=== PATIENT | male | born 1970 | race Caucasian/White ===

== ENCOUNTER 2022-10-29 00:50 | Emergency (ER) | payer BC, SELFPAY ==
[2022-10-29 01:10] VITALS: BP 148/104; PULSE 82; RESP 18; TEMP 36.7; O2SAT 98; BMI 42.6
--- NOTE | 2022-10-29 01:52 | CRLHL7_ITS ---
For Patients: As a result of the Century Cures Act, medical imaging exams and procedure reports are released immediately into your electronic medical record. You may view this report before your referring provider. If you have questions, please contact your health care provider. Indication: Ulcer, evaluate for osteomyelitis Technique: Three views right 2nd toe Comparison: Nine Findings/impression: Small amount of soft tissue air at the tip the right 2nd toe. Questionable bony erosion of the distal phalanx, concerning for osteomyelitis, best seen on the oblique view. Dictated by Elva Araiza MD @ 10/29/2022 3:24:04 AM (Electronically Signed)
[2022-10-29 02:11] LABS: Basophils Absolute Auto 0.06 K/uL (0.00-0.30); Basophils Percent Auto 0.6 % (0.0-3.0); Eosinophils Absolute Auto 0.32 K/uL (0.00-0.50); Eosinophils Percent Auto 3.3 % (0.0-7.0); Hematocrit 50.5 % (37.0-53.0); Hemoglobin* 18.1 gm/dL (13.5-17.5); Immature Granulocytes Abs Auto 0.03 K/uL (0.00-0.30); Immature Granulocytes Pct Auto 0.3 %; Lymphocytes Absolute Auto 3.56 K/uL (0.90-2.90); Lymphocytes Percent Auto 36.9 % (20-44); Mean Corpuscular HGB Conc 36 gm/dL (32-36); Mean Corpuscular Hemoglobin 31 pg (26-34); Mean Corpuscular Volume 88 fL (80-100); Neutrophils Percent Auto 51.9 % (42.0-72.0); Platelet Count* 180 K/uL (140-440); RDW Coefficient of Variation % 12.1 % (11.5-15.5); Red Blood Count 5.77 m/uL (4.30-5.90); White Blood Count* 9.65 K/uL (4.50-11.00)
[2022-10-29 02:26] LABS: Chloride* 101 mmol/L (96-114); Sodium* 134 mmol/L (135-149)
[2022-10-29 02:27] LABS: Potassium* 4.2 mmol/L (3.6-5.1)
[2022-10-29 02:29] LABS: Creatinine* 0.8 mg/dL (0.5-1.5); Est. Creatinine Clearance* 132.61; Estimated Glomerular Filt Rate 106 ml/min
[2022-10-29 02:30] LABS: Blood Urea Nitrogen* 17 mg/dL (7-30); Carbon Dioxide* 23 mmol/L (20-32); Glucose* 230 mg/dL (60-115)
[2022-10-29 02:32] LABS: Slide Review Reflex No
[2022-10-29 02:33] LABS: C Reactive Protein* 0.8 mg/dL (0.5-1.0)
[2022-10-29 02:48] LABS: Erythrocyte SedimentationRate* < 2 mm/hr (2-15)
--- NOTE | 2022-10-29 03:21 | ED.SKABFB ---
HPI - Skin/Abscess/Foreign Bdy General Chief complaint: Skin/Abscess/Foreign Body Stated complaint: infection on right foot Time Seen by Provider: 10/29/22 01:46 History of Present Illness HPI narrative: 52-year-old man presenting to the emergency department with concern of infection in a toe on his right foot. History of neuropathy now with redness and swelling just noticed in the right 2nd toe. 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 Prior care for this was received in [place]. He has had some light drainage now possibly as long as 2 weeks from this toe. Struggling with 's health after a fall with a TBI and craniotomy and has not been attending to himself he says in the way he would have normally. Diarrhea today without abdominal pain. He has not had a fever. Related Data Allergies Allergy/AdvReac Type Severity Reaction Status Date / Time doxycycline AdvReac Verified 10/29/22 01:13 Review of Systems Status of ROS: Reports: 6 or more systems reviewed and unremarkable except as noted in History and below [facility] Medical History Diabetes ?E11.9 - Type 2 diabetes mellitus without complications (ICD-10) Neuropathy ?G62.9 - Polyneuropathy, unspecified (ICD-10) Social History Smoking Status: Never smoker Do you use any of these nicotine containing products: None How often do you have a drink containing alcohol: never AUDIT-C Alcohol total score: 0 Non-prescribed substance use: denies use Exam Narrative: Exam Narrative: A pleasant. Carefully groomed. Dapper. Mildly congested in his breathing. Heart with regular rate and rhythm. Skin is warm and dry. Does have mildly pitting pretibial edema. Examination of the right foot shows rather thickened toenails. The right 2nd toe in question has thick distal total tip of toe callus with some sub callus evidence of a little bleeding. There is mild fluctuance. There is odor. Darkly red mildly purpled in color skin throughout the 2nd toe to the MTP joint. No calor. No pain to palpation/manipulation. Const: Vital Signs, click to edit/add: Vital Signs - 24 hr 10/29/22 01:10 10/29/22 07:35 Temperature 98.1 F 98.4 F Pulse Rate [Left P ulse Oximeter] 82 78 Respiratory Rate 18 16 Blood Pressure [Ri ght Upper Arm] 148/104 H 151/94 H Pulse Oximetry 98 98 Documenting provider has reviewed patient's vital signs: yes Course Vital Signs Vital signs: Initial Vital Signs Temperature 98.1 F 10/29/22 01:10 Temperature Source Temporal Artery Scan 10/29/22 01:10 Pulse Rate 82 10/29/22 01:10 Respiratory Rate 18 10/29/22 01:10 Blood Pressure 148/104 H 10/29/22 01:10 Blood Pressure Mean 118 H 10/29/22 01:10 Blood Pressure Position Sitting 10/29/22 01:10 Pulse Oximetry 98 10/29/22 01:10 Vital Signs Temperature 98.1 F 10/29/22 01:10 Pulse Rate 82 10/29/22 01:10 Respiratory Rate 18 10/29/22 01:10 Blood Pressure 148/104 H 10/29/22 01:10 Pulse Oximetry 98 10/29/22 01:10 Temperature 98.4 F 10/29/22 07:35 Pulse Rate 78 10/29/22 07:35 Respiratory Rate 16 10/29/22 07:35 Blood Pressure 151/94 H 10/29/22 07:35 Pulse Oximetry 98 10/29/22 07:35 MDM - Skin/Abscess/Foreign Bdy MDM Narrative Medical decision making narrative: He is concerned about evolving infection and would like some lab work done. I think that is appropriate. I see less evidence of cellulitis and would have more concerned of potential osteomyelitis. This time of night can do x-rays. IV will be placed as if might need to maintain for some time. This is done and on my review of x-ray images of his toe do not initially appreciate evidence of osteomyelitis. Unfortunately in moderately busy emergency department it was quite some time before Mr. Potter was able to receive his x-ray. Radiology over-read suggests appearance of erosion to the tip of the toe on oblique view only --reviewing myself I can appreciate the concern. Return to unroof this callus. Cleanse the toe with Betadine. Removed this callus and some callus material just superior to that. Under the main calluses distal toe there is a 1 cm ulceration with some purulent material. Collected for wound culture. Above that removed another callus under which seemed to be some fluctuance though which exposed a small amount of some healthy tissue into the pad of the toe I think. Bacitracin Vaseline gauze and Elizabeth placed. Labs overall reassuring with normal sed rate and CRP. CBC with normal white count. I think it would be prudent to treat as if osteomyelitis is present. I will be consulting with Podiatry. Initiated course of Ertapenem and vancomycin given comorbidities. I would note though chronic nature of this presentation including potential osteomyelitis. Might be possible to treat with oral medication. There is only minimal evidence of cellulitis. Thankfully managed to reach Dr. Benites. Will be reaching out in the next day or 2. Meanwhile will transition to oral antibiotics. Discussed options and settled on Augmentin. Do not have prior culture results. Sub-callus wound culture pending here. see patient discharge plan Medical Records Attestation: I reviewed the patient's medical records. (None available) Lab Data Attestation: I reviewed the patient's lab results. Labs: Lab Results 10/29/22 Range/Units 02:05 WBC 9.65 (4.50-11.00) K/uL RBC 5.77 (4.30-5.90) m/uL Hgb 18.1 H (13.5-17.5) gm/dL Hct 50.5 (37.0-53.0) % MCV 88 (80-100) fL MCH 31 (26-34) pg MCHC 36 (32-36) gm/dL RDW Coeff of Vonnie 12.1 (11.5-15.5) % Plt Count 180 (140-440) K/uL Neut % (Auto) 51.9 (42.0-72.0) % Lymph % (Auto) 36.9 (20-44) % [place] % (Auto) 7.0 (0.0-11.0) % Eos % (Auto) 3.3 (0.0-7.0) % Baso % (Auto) 0.6 (0.0-3.0) % Neut # (Auto) 5.00 (1.7-7.0) K/uL Lymph # (Auto) 3.56 H (0.90-2.90) K/uL [place] # (Auto) 0.70 (0.00-0.90) K/UL Eos # (Auto) 0.32 (0.00-0.50) K/uL Baso # (Auto) 0.06 (0.00-0.30) K/uL ESR < 2 L (2-15) mm/hr Sodium 134 L (135-149) mmol/L Potassium 4.2 (3.6-5.1) mmol/L Chloride 101 (96-114) mmol/L Carbon Dioxide 23 (20-32) mmol/L BUN 17 (7-30) mg/dL Creatinine 0.8 (0.5-1.5) mg/dL Estimated Creat Clear 132.61 Estimated GFR 106 ml/min Glucose 230 H (60-115) mg/dL Calcium 9.0 (8.4-10.6) mg/dL C-Reactive Protein 0.8 (0.5-1.0) mg/dL Discharge Plan Discharge Clinical Impression: Cellulitis, Osteomyelitis Patient Disposition: Home, Self-Care Condition: Stable Additional Instructions: Stay well-hydrated. Change dressing daily. Elevate leg at rest. Anticipate a call from Dr. Benites's clinic today or tomorrow morning. Return for fever, vomiting, copious purulent drainage, spreading redness after 2 days. Augmentin from [facility]. Follow Up/Referrals: Brijesh Rossi MD [Primary Care Provider] - Stand Alone Forms: MyHealth Info Instructions
[2022-10-29] MEDS: ERTAPENEM 1 GM in 0.9 % SODIUM CHLORIDE Mini-bag 100 ML IVPB (04:37)
[2022-10-29 07:35] VITALS: BP 151/94; PULSE 78; RESP 16; TEMP 36.9; O2SAT 98
== END 2022-10-29 08:03 | disposition home or self-care (01) ==
PROVIDERS: Emergency Provider Family Medicine; PCP Family Medicine
DX: L03.115 Cellulitis of right lower limb (principal); M86.8X7 Other osteomyelitis, ankle and foot
CPT/HCPCS: 36415; 73660; 80048; 85025; 85651; 86140; 87070; 87186; 96365; 96366; 99284; J1335; J3370; J7120

== ENCOUNTER 2023-10-27 06:01 | Day surgery (SDC) | payer BC, SELFPAY ==
[2023-10-27 06:18] VITALS: BMI 42.4
[2023-10-27 06:42] VITALS: BP 135/69; PULSE 61; RESP 16; TEMP 36.8; O2SAT 98
[2023-10-27] MEDS: LACTATED RINGERS 1000 ML 1,000 ML 100 ML IV (06:43)
[2023-10-27] MEDS: SODIUM CHLORIDE 0.9 % (FLUSH) 10 ML SYRINGE IVF (06:43)
--- NOTE | 2023-10-27 07:15 | XR_ITS ---
Patient: LOUIS STOUT Facility:?[facility] Patient ID:?[id number] Site Patient ID:?[id number] Site :?1970 Study:?XRay-Extremity Right FOOT 2 VIEW-10/27/2023 8:44:55 AM Ordering Physician:CHELSY Final Report: Indication: RIGHT cheilectomy, 1ST MPJ FUSION Technique: Three fluoroscopic images of the right foot. Fluoroscopic time 6.8 seconds. IMPRESSION: Fluoroscopic guidance for right cheilectomy and 1st MTP fusion. Dictated by Eliazar Serra MD @ 10/27/2023 8:59:47 AM Signed by:?Eliazar Serra MD @10/27/2023 8:59:47 AM (Electronic Signature)
[2023-10-27] MEDS: CEFAZOLIN 2 GM INJ IVP (07:24)
[2023-10-27] MEDS: BUPIVACAINE 0.5% 30 ML INJECTION (07:34)
[2023-10-27 08:50] VITALS: BP 118/75; PULSE 52; RESP 16; TEMP 36.6; O2SAT 96
--- NOTE | 2023-10-27 08:58 | W.ANESCHARGE ---
Anesthesia Charges Start Date/Time Anesthesia Start Date: 10/27/23 Anesthesia Start Time: 07:16 Stop Date/Time Anesthesia Stop Date: 10/27/23 Anesthesia Stop Time: 08:53
[2023-10-27 09:00] VITALS: BP 123/64; PULSE 51; RESP 16; O2SAT 92
--- NOTE | 2023-10-27 09:00 | W.PM.PODPROC ---
Date of Procedure: 10/27/23 Surgeon: Eduard Benites DPM Pre-op Diagnosis: 1. Hallux rigidus right 2. 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 hallux rigidus right 2. 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 cheilectomy 1st MPJ right 2. flexor tenotomy right great toe Indications: patient seen in clinic for ongoing diabetic ulceration great toe in addition to bony spurring at the 1st MPJ. He has elected to proceed with surgical with treatment. I reviewed the procedure, recovery, expectation potential complications. These include but are not limited to: Poor wound healing, infection, recurrence, stiffness, continued pain, potential need for future surgery, deep venous thrombosis, pulmonary embolism possible . All questions answered written consent was obtained. Site marked. Procedure Description: Patient brought the operating room placed supine position on operating table. IV sedation was initiated local anesthetic injected into the right foot. He was prepped and draped in sterile fashion. Standard time-out protocol followed. The right foot was exsanguinated the tourniquet inflated to 250 mm Hg. Linear incision was made over the 1st metatarsophalangeal joint. Incision was carried down through skin subcutaneous tissues. A linear capsular incision was made. Multiple osteophytes were removed. The bony spurring was then removed from the dorsal mediolateral 1st metatarsal as well as base of the proximal phalanx utilizing a rongeur. Joint was remodeled with a rotary bur. Wound was thoroughly irrigated normal sterile saline. C-arm confirmed excellent bony resection. Range of motion improved. joint capsule remodeled and repaired with 3-0 Vicryl. Skin closed with 4-0 Monocryl and 4-0 Prolene. Small stab incision made with a 6100 blade plantar IPJ right great toe. Flexor hallucis longus tendon transected at the level of the IPJ. Incision closed with a single 4-0 Prolene Suture. Sterile dressings applied. Tourniquet was released and normal capillary fill time returned all digits. He was transferred from OR to PACU vital signs stable and vascular status intact to the right lower extremity. He will be discharged per same-day surgery protocol. He is given verbal and written postoperative instructions. He will follow up in 2 days. He is given oxycodone for pain. Anesthesia: MAC and local Hemostasis: ankle Estimated blood loss (mL): 5 Specimens: none sent Disposition: same day
[2023-10-27 09:15] VITALS: BP 121/64; PULSE 56; RESP 16; O2SAT 93
[2023-10-27 09:30] VITALS: BP 121/72; PULSE 56; RESP 16; O2SAT 95
== END 2023-10-27 10:05 | disposition home or self-care (01) ==
PROVIDERS: PCP Family Medicine; Visit Provider Podiatrist
PROC: (CPT 28289; principal; 2023-10-27 07:15)
PROC: (CPT 28740; 2023-10-27 07:15)
DX: M20.21 Hallux rigidus, right foot (principal); E11.621 Type 2 diabetes mellitus with foot ulcer; L97.512 Non-pressure chronic ulcer of other part of right foot with fat layer exposed; M20.5X1 Other deformities of toe(s) (acquired), right foot
CPT/HCPCS: 28010 ×2; 28289; 01480; 73620; 76000; 82962; A4580; J0665; J0690; J2250; J2704; J3010; J7120

== ENCOUNTER 2023-12-01 11:55 | Outpatient (CLI) | payer BC, SELFPAY | END 2023-12-01 11:56 | disposition home or self-care (01) | LOC: NFLDREF 12-19 08:11 | PROVIDERS: PCP Family Medicine; Referring Provider Family Medicine | DX: R19.7 Diarrhea, unspecified (principal); Z86.19 Personal history of other infectious and parasitic diseases | CPT/HCPCS: 87045; 87046; 87427; 87493 ==

== ENCOUNTER 2024-08-14 15:17 | Emergency (ER) | payer BC, SELFPAY ==
[2024-08-14] VITALS (7 sets, daily range): BP systolic 165–167; BP diastolic 97–98; PULSE 120–125; RESP 20–22; TEMP 37.6; O2SAT 89–92; BMI 40.0
--- OUTSIDE RECORDS SUMMARY | 2024-08-14 15:20 | XMS_ITS | Continuity of Care Document ---
Author Organization [facility] Address [address] [address] [place] [address] Phone Care Team Providers Care Splunk Consultant Name Role Phone Devon Lerner MD Unavailable Unavailable Allergies, Adverse Reactions, Alerts Substance Reaction Status Criticality lisinopril cough Active No Information doxycycline hallucinations Active No Informatio n Medications Medication Instructions Dosage Effective Dates (start - stop) Status Comments hydrochlorothiazide 25 mg tablet take 1 tablet by oral route every day 25 MG - Active pravastatin 40 mg tablet take 1 tablet b y oral route every day 40 MG - Active amlodipine 5 mg tablet take 1 tablet by oral route every day 5 MG - Active Vitamin D3 2,000 unit tablet take 1 Tablet by Oral route every day 1 Tablet - Active Procedures Procedure Date Colonoscopy Flex; W/bx 1/mx Level Iv-surg Path Gross/micro 16 cancelled appt cancelled appt Ugi Endo; W/bx 1/mx Routine Serum Collection Offic/outpt E&m New Mod-hi Advance Directives Directive Yes / No Effective Date File Name No Information Encounters Encounter Description Practice Location Reason(s) For Visit Diagnoses Date Provider Providers Copied on Encounter [facility], [address] [address], [place], [id number], [place] tel:[phone] [facility] DiarrheaDiarrhea, unspecified 3-201 6 Eduarda Osorio. [address] [facility], [place], [id number] , [place]. [phone] Referring Provider: Brijesh Rossi MD, [address] [place], [address]. tel:[phone] [facility], [address] [address], [place], [place], [id number], [place] tel:[phone] [facility] Procedure and treatment not carried out for other reasons 6 Benedicto Escoto. [address] [facility], [facility] [address], [facility] [place], [id number] , [place]. tel:[phone] Referring Provider: Brijesh Rossi MD, [address] [place], [address]. tel:[phone] [facility], [address] [address], [place], [place], [id number], [place] tel:[phone] [facility] No Information 4 Jeff Conteh. [address] [place] [address], [facility] [address], [facility] [place], [id number] , [place]. [phone] Referring Provider: Brijesh Rossi MD, [address] [place], [address]. tel:[phone] [facility], [address] [address], [place], [place], [id number], [place] tel:[phone] [facility] External Referral 4 Jeff Conteh. [address] [place] [address], [facility] [address], [facility], [id number] , [place]. tel:[phone] Offic/outpt E&m New Mod-hi [facility], [address] [address], [place], [place], [id number], [place] tel:[phone] [facility] GI Symptoms or Concerns (chief complaint) Nausea And VomitingDietary Surveil/counselHype rtension, UnspecifiedEssentia l (primary) hypertensionNausea with vomiting, unspecifiedDietary counseling and surveillance 4 Benedicto Escoto. [address] [place] [address], [facility] [address], [facility] [place], [id number] , [place]. tel:[phone] Referring Provider: Brijesh Rossi MD, [address] [place] [address], [address]. tel:[phone] Family History Family Member Type Diagnosis Age At Onset Sister Problem (finding) malignant neop lasm of breast in first degree relative Father Problem (finding) Alive and well Mother Problem (finding) Thyroid disorder Sister Problem (finding) Leukemia Payers Payer name Insurance type Covered alliance party ID Authoriza timaninder(s) [facility] [employer] [id number] Social History Type Description Quantity Date Captured Comments Alcohol Use Details Unknown Caffeine Use Details Unknown Tobacco Use Status No Information Smoking Status Former smoker Sex Male Vital Signs Date / Time: Height Weight BMI Pulse Rate Blood Pressure Temperature Respiratory Rate Body Surface Area Head Circumference Head Circ. Percentile Wt./Justin. Percentile BMI percentile Pulse Ox Inhaled Ox 76.00 in 154.200 kg (340.00 lbs) 41.4 0 kg/m eter (2) 73 /min 151/90 mm[Hg] 0.00 F 16 /min 97 % Chief Complaint And Reason For Visit No Information Reason For Referral Reason For Referral No Information Plan Of Treatment Date Type Action Status Goal Lifestyle education regardin g diet completed History Of Present Illness Encounter Date Complaint History Of Prese nt Illness GI Symptoms or Concerns The cassandra ent is a 44-year-old male with past medical history significant for hypertension seen for evaluation of episodic weakness associated with nausea and vomiting.The patient reports symptom onset in October initially episodes of weakness followed by nausea and vomiting were occurring every four to six weeks typically after dinner. More recently, symptoms have been occurring three times a week without any association with p.o. intake or medications. Typical episode occurs between the hours of 04:00 and 08:00 PM. He describes profound weakness, feeling drained without any associated lightheadedness or dizziness followed by nausea and nonbloody emesis. The episode is primarily characterized by the feeling of weakness and can last from 30 minutes to three hours. He denies any associated abdominal pain. He denies diarrhea or constipation, no blood in his stool. He denies any history of weight loss. There is no early satiety. On questioning, he does say he has checked his blo Functional Status Date Functional Assessmen t No Information Instructions Date Instruction Additional Infor abimbola 1. EGD2. Tsh, sprue serologies3. consider 2nd opinion regarding cholecystectomy given low gb ef (patient would like to discuss further with pcp)4. ropinirole may be the cause of these symptoms -patient will discuss with prescribing physician5. f/u with cardiology as scheduled.6. pending course and findings consider cosyntropin stim test and neuro eval Related to Nausea And Vomiting Lifestyle education regarding di et Related to Dietary surveillance and counseling Assessments Type Assessment Date assessment Diarrhea Patient Care Teams Name Effective Dates (start - stop) Status Members No Information
--- OUTSIDE RECORDS SUMMARY | 2024-08-14 15:20 | XMS_ITS | Clinical Summary ---
Author Organization [facility] Address [place], [place] [address] Care Team Providers Care Wall Cleaner Name Role Phone Kevonshon Areli Samantha RN Unavailable [phone] Brijesh Rossi MD Primary Care Provider Allergies Active Allergy Reactions Criticality Noted Date Comments Lisinopril Cough 04/13/2014 Zonisamide Anxiety,Agitation,Mental Status Change 04/13/2020 Medications cholecalciferol (VITAMIN D-3) 2,000 unit capsule Take 1 capsule by mouth once daily. 1 capsule 0 05/25/20 14 Active aspirin (ECOTRIN) 81 mg enteric coated tablet Take 1 tablet by mouth once daily with a meal. 0 03/26/20 17 Active topiramate (TOPAMAX) 100 mg tablet 03/16/20 21 Active blood sugar diagnostic (OneTouch Verio test strips) stripIndications:T ype 2 diabetes mellitus with foot ulcer, without long-term current use of insulin (HC) Dispense test strips covered by the patient insurance. Test 2 times per day. 100 Each 12 06/20/20 21 Active pramipexole (MIRAPEX) 0.125 mg tabletIndications: Idiopathic peripheral neuropathy TAKE THREE TABLETS BY MOUTH AT BEDTIME. MAY INCREASE BY ONE TAB WEEKLY, UP TO FOUR TABS. Need to make an apt for further refills. 120 Tablet 07/24/19 22 Active pravastatin (PRAVACHOL) 40 mg tabletIndications: Mixed hyperlipidemia Take 1 Tablet (40 mg) by mouth at bedtime. 90 tablet. 3 09/20/19 22 Active losartan (COZAAR) 50 mg tabletIndications: HTN (hypertension) Take 1 Tablet (50 mg) by mouth once daily. 90 Tablet 3 09/20/19 22 Active amLODIPine (NORVASC) 10 mg tabletIndications: HTN (hypertension) Take 1 Tablet (10 mg) by mouth once daily. 90 tablet. 3 09/20/19 22 Active durable medical equipment (DME)Indications:D iabetic ulcer of toe of right foot associated with type 2 diabetes mellitus, with fat layer exposed (HC),Other acute osteomyelitis, unspecified site (HC) SQUARED TOE POST OP SHOE, XL 1 Each 11/21/19 23 Active ondansetron (ZOFRAN ODT) [address] 4 mg on the tongue every 8 hours if needed for Nausea/Vomiting. Active FreeStyle Ernst 3 Sensor for continuous blood glucose monitor (CGM)Indications:T ype 2 diabetes mellitus with foot ulcer, without long-term current use of insulin (HC) To be used to read blood sugars, follow hemmer lockstitch directions. Change each sensor every 14 days 2 Each 12 04/17/20 23 Active LORazepam (ATIVAN) 1 mg tabletIndications: Generalized anxiety disorder with panic attacks Take 0.5-1 Tablets (0.5-1 mg) by mouth once daily if needed for Anxiety (or panic symptoms). 10 Tablet 04/18/20 23 Active aspirin 325 mg tablet Take 325 mg by mouth. 02/04/20 23 Active oxyCODONE (ROXICODONE) 5 mg immediate release tabletIndications: Hallux rigidus, right foot Take 1-2 Tablets (5-10 mg) by mouth every 4 hours if needed for Pain. 15 Tablet 10/27/19 24 Active tirzepatide (Mounjaro) 12.5 mg/0.5 mL penIndications:Typ e 2 diabetes mellitus with foot ulcer, without long-term current use of insulin (HC) Inject 0.5 mL (12.5 mg) subcutaneous once weekly. 6 mL 01/01/20 24 Active gabapentin (NEURONTIN) 300 mg capsuleIndications :Idiopathic peripheral neuropathy,Foot pain, right TAKE 2 CAPS BY MOUTH IN MORNING, 1 CAP IN AFTERNOON AND 5 CAPS AT BEDTIME. 720 Capsule 04/26/20 24 Active FLUoxetine (PROZAC) 10 mg capsuleIndications :Major depressive disorder, recurrent, mild (HC),Generalized anxiety disorder with panic attacks Take 3 Capsules (30 mg) by mouth once daily. 90 Capsule 05/24/20 24 Active zolpidem (AMBIEN) 5 mg tabletIndications: Insomnia, idiopathic Take 1 Tablet (5 mg) by mouth at bedtime if needed for Sleep. 30 Tablet 1 06/15/20 24 Active LORazepam 1 mg tabletIndications: Adjustment reaction with anxiety and depression Take 1 tablet by mouth once or twice daily as needed for anxiety 20 Tablet 06/22/20 24 Active QUEtiapine (SeroqueL) 25 mg tabletIndications: Adjustment reaction with anxiety and depression Take 1-2 tablets by mouth once daily about 1 hour before bed for insomnia 30 Tablet 1 06/22/20 24 Active Active Problems Problem Noted Date Diagnosed Date Morbid obesity with BMI of 45.0-49.9, adult 11/11 Type 2 diabetes mellitus wit h foot ulcer, without long-term current use of insulin 07/30/2021 Cellulitis and abscess of left lower extremity 0 03/26/2021 RLS (restless legs syndrome) 05/14/2013 HTN (hypertension) Other and unspecified hyperlipidemia Peripheral neuropathy Encounters Date Type Department Care Team Description 06/22/2024 2:40 PM PATTERN MOLDER Office Visit [facility] [id number] [phone] Emilie Dodson PA Mental Health Issue (Patient would like mental health referral. Patient lost on and is having trouble sleeping and eating. Patient states he has depression during the day and anxiety throughout the night. was in Hospice for 7 months.) 06/22/2024 Travel 06/22/2024 Nurse Triage [address] [phone] Brijesh Rossi MD Depression 05/22/2024 [place] [facility] [place] [address] [place] [address] Alireza Padilla MD Refill Request (Fluoxetine) 05/19/[address] [phone] Alireza Padilla MD Refill Request (Fluoxetine ) from Last 3 Months Immunizations Name Administration Dates Next Due COVID-19 vaccine (Moderna 100mcg/0.5mL) PF, MDV 10/24/2020,09/27/2020 COVID-19 vaccine (Pfizer-BioNTech 30mcg/0.3mL) P F, MDV 06/19/2021 Hepatitis A (Adult) 04/18/2015,05/25/2014 Td (Age >=7 Years) 06/16/2023 Tdap 05/25/2014 Typhoid (injectable) 06/28/2015 Zoster (Shingrix-RZV, recombinant) 12/03/2021, Family History Medical History Relation Name Comments Heart failure Father Hypertension Father Neuropathy Father Idiopathic Cancer Sister leukemia Relation Name Status Comments Father Mother Alive Sister Alive Social History Tobacco Use Types Packs/Day Years Used Date Smoking Tobacco: Former Cigarettes 0.3 15 0 03/03/2002 - 03/03/2017 Smokeless Tobacco: Never Tobacco Cessation:Counseling Given: Yes Comments:Has not had a cigarette since 02/01/23 Alcohol Use Standard Drinks/Week Comments Not Currently 1 (1 standard drink = 0.6 oz pur e alcohol) Minimal PHQ-2 Answer Date Recorded PHQ-2 TOTAL SCORE 3 06/22/2024 Social Connections Answer Date Recorded Frequency of Communication with Friends and Fami ly 0 04/17/2023 Financial Resource Strain Answer Date R ecorded Difficulty of Paying Living Expenses 3 04/17/2023 Difficulty of Paying Living Expenses Not on file 04/17/2023 Food Insecurity Answer Date Recorded Worried About Running Out of Food in the Last Ye ar 1 04/17/2023 Transportation Needs Answer Date Record ed Lack of Transportation (Medical) 1 04/17/2023 Housing Stability Answer Date Recorded Unable to Pay for Housing in the Last Year 1 04/17/2023 Sex and Gender Information Value Date Recorded Sex Assigned at Not on file Legal Sex Male 7:19 AM PATTERN MOLDER Gender Identity Not on file Sexual Orientation Not on file Occupation Industry Job Start Date Job End Date [employer] Not on file Not on file Not on file Obstetrics History Last Filed Vital Signs Vital Sign Reading Time Taken Comments Blood Pressure 183/102 06/22/2024 2:47 PM PATTERN MOLDER Pulse 104 06/22/2024 2:47 PM PATTERN MOLDER Temperature 36.1 C (97 F) 06/22/2024 2:47 PM PATTERN MOLDER Respiratory Rate 22 06/22/2024 2:47 PM PATTERN MOLDER Oxygen Saturation 95% 06/22/2024 2:47 PM PATTERN MOLDER Inhaled Oxygen Concentration - - Weight 150 kg (330 lb 11.2 oz) 10/02/2023 9:11 A M CDT Height 189.2 cm (6' 2.5) 10/02/2023 9:11 AM CDT Body Mass Index 41.89 10/02/2023 9:11 AM CDT Plan of Treatment Upcoming Encounters Date Type Department Care Team (Late st Contact Info) Description 08/17/2024 2:30 PM PATTERN MOLDER Office Visit [facility] [address] [place], [place] [phone] Aime Perry MD [address] [place], [place] [phone] Health Maintenance Due Date Last Done Comments HIV for age 15-65 1985 Hepatitis C screening for ag e 18-79 01/23/1988 Hepatitis B series for Diabe jamie (1 of 3 - 19+ 3-dose series) 1989 Pneumococcal series for age 50+ (1 of 2 - PCV) 1989 Lipids for age 45-75 05/29/2023 05/29/2018, 05/29/2018, 05/14/2013, Additional history exists COVID-19 vaccine series (2023- season) 2024 06/19/2021, 10/24/2020, 09/27/2020 Influenza for age 50-64 03/14/2024 BMI (ht and wt on same day) for age 18+ 10/01/2024 10/02/2023, 04/17/2023, 01/30/2022, Additional history exists Depression screening for age 12+ 06/22/2025 06/22/2024, 05/13/2023, 04/01/2023, Additional history exists Colonoscopy through age 75 10/24/2025 10/25/2015 Tetanus booster 06/16/2033 06/16/2023, 05/25/2014 Tdap Completed 05/25/2014 Zoster (shingles) series for age 50+ Completed 12/03/2021, 09/19/2021 Procedures Procedure Name Priority Date/Time Associated Diagnosis Comments LIPID PANEL W REFLEX MEASURED LDL Routine 05/29/2018 2:15 PM PATTERN MOLDER Well adult exam SCAN-COLONOSCOPY 10/25/2015 8:00 AM CDT from Last 3 Months or Most Recently Relevant to Health Maintenance Results * (ABNORMAL) LIPID PANEL W REFLEX MEASURED LDL (05/29/2018 2:15 PM PATTERN MOLDER) CHOLESTEROL,TOTAL 182 100 - 199 mg/dL 05/29/2018 2:48 PM PATTERN MOLDER [facility] TRIGLYCERIDES 415(H) <150 mg/dL 05/29/2018 2:48 PM PATTERN MOLDER [facility] HDL CHOLESTEROL 30(L) >40 mg/dL 8 2:48 PM PATTERN MOLDER [facility] NON-HDL CHOLESTEROL 152(H) <145 mg/dl 05/29/2018 2:48 PM PATTERN MOLDER [facility] CHOL/HDL RATIO 6.07(H) <4.50 05/29/2018 2:48 PM PATTERN MOLDER [facility] LDL CHOLESTEROL 8 2:48 PM PATTERN MOLDER [facility] Comment:Invalid LDL when Tri g >400, reflexed to measured LDL PROVIDER ORDERED STATUS RANDOM 05/29/2018 2:48 PM PATTERN MOLDER [facility] Blood BLOOD SPECIMEN / Unknown Venipuncture / Unknown 05/29/2018 2:15 PM PATTERN MOLDER 05/29/2018 2:15 PM PATTERN MOLDER us Brijesh Rossi MD CHEMISTRY Final R esult [address] [address] * SCAN-COLONOSCOPY (10/25/2015 8:00 AM CDT) Narrative Transcriptions Devon Lerner MD - 10/25/2015 7:04 AM CDT [facility] [address], [address], [place] [address] Patient Name: Louis Potter Gender: Male Exam Date: 10/25/2015 Visit Number: [id number] Age: 45 Years Date of : 1970 Attending MD: Devon Lerner MD Medical Record#: [id number] ----- Procedure: Colonoscopy Indications: Diarrhea Referring MD: Brijesh Rossi MD Primary MD: Brijesh Rossi MD Medications: Intra Procedure Medications: Received MAC sedation per anesthesia provider Complications: Procedure: An examination of the heart and lungs was performed and found to be withinacceptable limits. The patient was therefore deemed a reasonablecandidate for endoscopy and 1 sedation. The risks and benefits of the procedure were explained to the patient.After obtaining informed consent, MAC sedation was administered peranesthesia provider and I passed the scope without difficulty via the rectum to the ileum. The appendiceal orificeand ic valve were identified. The scope was retroflexed during theexamination The quality of the prep was good (Miralax/Gatorade DoublePrep). This was a complete examination throughout the entire colon. Findings: Normal finding. Location - ileum. Random biopsies were taken throughout the colon to rule out microscopiccolitis. The entire colon was normal. Impression: Diarrhea impression comments: Colonoscopy was unremarkable. He does have afamily history of microscopic colitis and biopsies were obtained. Interestingly, he did require a 2-day colon prep, which brings up thepossibility of constipation with overflow diarrhea. Pathology Results: A: COLON, RANDOM, BIOPSY: 1. Colonic mucosa with no diagnostic abnormalities 2. No evidence of microscopic, active or chronic colitis MICROSCOPIC A: Performed Electronically signed by: Nasir Maxwell MD No microscopic colitis. If symptoms persist, we would be happy to see cherry in our clinic for consultation. Final Plan: Repeat colonoscopy in 10 years for screening. If you have signs orsymptoms of lower GI illness or a new diagnosis of colon cancer in animmediate family member, you should contact [place] or your primary providerto discuss whether your next exam should be repeated sooner. We will attempt to contact you at appropriate intervals via [place] mail. Wemay not be able to find you or contact you at that time, therefore youshould know that the responsibility for following our recommendation restswith you. If you don't hear from us at the time your procedure is due,please contact our office to schedule an appointment. If your contactinformation should change, please contact our office so that we can updateyour record. Plan Comments: Recommendation Comments: Follow up biopsies. Additional Comments: No microscopic colitis. If symptoms persist, we would be happy to see cherry in our clinic for consultation. _Electronically signed by: Devon Lerner MD 10/25/2015 Devon Lerner MD OTHER Final Resu lt from Last 3 Months or Most Recently Relevant to Health Maintenance Insurance [facility] [place] * Guarantor: LOUIS POT[employer] Account Type Relation to Patient Date of Phone Billing Address Workers Comp 1970 [address], [place] [address] [place] [employer] Advance Directives * Full Code (Latest Code Status on File) Date Activated Date Inactivated Comments 12/02/2022 10:29 AM 12/03/2022 2:28 AM Question Answer Comments Code Status Discussion: Reviewed Preferences * Full Code Date Activated Date Inactivated Comments 08/02/2021 11:19 AM 08/02/2021 5:10 PM Question Answer Comments Code Status Discussion: Reviewed Preferences * Full Code Date Activated Date Inactivated Comments 06/07/2014 2:16 PM 06/07/2014 7:42 PM * Full Code Date Activated Date Inactivated Comments 06/07/2014 8:26 AM 06/07/2014 2:16 PM Care Teams Wall Cleaner Relationship Specialty Start Date End Date Brijesh Rossi MD [address] [place] [address] [address] [place] [address] PCP - General Family Practice 04/26/24 Areli Ogden RN [address] [place] [address] Boiler Control Technician 04/17/23
--- OUTSIDE RECORDS SUMMARY | 2024-08-14 15:20 | XMS_ITS | Clinical Summary ---
Author Organization [facility] Address [address], [place] [address] Care Team Providers Care Fuel Dock Attendant Name Role Phone Brijesh Rossi MD Primary Care Provider [phone] Source Comments You are receiving this document as you are listed as the primary care provider,follow-up provider, or the patient has been referred to you for consultation.This is in compliance with the Medicare and[facility] Cent[facility]aid EHR Incentive Program,which states Providers who transition their patient to another setting of careor provider of care or refers their patient to another provider of care shouldprovide summary care record for each transition of care or referral. [place] Allergies Active Allergy Reactions Criticality Noted Date Comments Lisinopril Cough 02/02/2023 Zonisamide Other, see comments 02/02/2023 anxiety Medications Medication Sig Dispensed Refills Start Date End Date Status aspirin 325 MG tablet Take 1 Tablet (325 mg) by mouth daily. 30 Tablet 02/03/2023 Active Social History Tobacco Use Types Packs/Day Years Used Date Smoking Tobacco: Never Assessed Sex and Gender Information Value Date Recorded Sex Assigned at Not on file Gender Identity Not on file Sexual Orientation Not on file Last Filed Vital Signs Vital Sign Reading Time Taken Comments Blood Pressure 122/85 02/03/2023 1:26 AM CDT Pulse 66 02/03/2023 1:26 AM CDT Temperature 36.7 C (98 F) 02/02/2023 8:26 PM CDT Respiratory Rate 16 02/02/2023 8:26 PM CDT Oxygen Saturation 94% 02/03/2023 1:26 AM CDT Inhaled Oxygen Concentration - - Weight - - Height - - Body Mass Index - - Plan of Treatment Health Maintenance Due Date Last Done Comments Colon Cancer Screening Plan Due 1970 Hep C Screening (Preventive Services) 1970 PSA Screening Discussion 1970 HIV Screening (Preventive Services) 1986 Adult Preventive Visit 01/23/1988 HepB (1) 1989 Cholesterol 2005 COVID-19 Vaccine (4 - 2023-2 5 season) 2024 06/19/2021, 10/24/2020, 09/27/2020 Influenza (#1) 2024 DTaP/Tdap/Td (2 - Tdap) 05/25/2024 05/25/2014 HepA Aged Out 04/18/2015, 05/25/2014 No longer eligible based on patient's age to complete this topic Zoster/Shingles Completed 12/03/2021, 09/19/2021 Hib Aged Out No longer eligi ble based on patient's age to complete this topic IPV (Polio) Aged Out No longer eligi ble based on patient's age to complete this topic MCV4 Aged Out No longer eligi ble based on patient's age to complete this topic Pneumococcal Aged Out No longer eligi ble based on patient's age to complete this topic Care Teams Fuel Dock Attendant Relationship Specialty Start Date End Date Brijesh Rossi MD [address] [place] [id number] PCP - General Family Practice 02/02/23
--- OUTSIDE RECORDS SUMMARY | 2024-08-14 15:20 | XMS_ITS | Clinical Summary ---
Author Organization [facility] Address [address] [place] [address] Care Team Providers Care Cathead Operator Name Role Phone RossiBrijesh Primary Care Provider [phone] Allergies Active Allergy Reactions Criticality Noted Date Comments Doxycycline Other (See Comments) 03/25/2017 hallucinations Lisinopril Cough 04/13/2014 Other reaction(s): Cough Zonisamide Anxiety Low 04/13/2020 Other reaction(s): Agitation, Mental Status Change, Other (see comments) Medications Varenicline Tartrate (CHANTIX PO) Take 1 mg by mouth 2 times daily Active AMLODIPINE BESYLATE PO Take 10 mg by mouth daily Active PRAVASTATIN SODIUM PO Take 40 mg by mouth every evening Active HYDROCHLOROTHIA ZIDE PO Take 25 mg by mouth daily Active gabapentin (NEURONTIN) 300 MG capsule Take 300 mg by mouth 2 times daily 2 tablets in AM; 6 tablet at night Active amoxicillin-cla vulanate (AUGMENTIN) 875-125 MG tablet Take 1 tablet by mouth 2 times daily for 7 days. 14 tablet 08/13/2024 5 Active Active Problems Problem Noted Date Diagnosed Date HTN (hypertension) 09/15/2019 Hyperlipidemia 09/15/2019 RLS (restless legs syndrome) 05/14/2013 Encounters Date Type Department Care Team Description 08/13/2024 1:17 AM LOAN DOCUMENTS CLOSER - 08/13/2024 3:55 AM [facility] Emergency Dept [address] [place] [id number] Nasir Beavers MD Epistaxis Discharge Disposition: Home or Self Care 08/13/2024 Travel from Last 3 Months Social History Tobacco Use Types Packs/Day Years Used Date Smoking Tobacco: Some Days Smokeless Tobacco: Never Tobacco Cessation:Ready to Q uit: No; Counseling Given: Yes Alcohol Use Standard Drinks/Week Comments Yes 2 (1 standard drink = 0.6 oz pur e alcohol) Adolescent Education Answer Date Record ed Getting School Help Needed Not on file 04/15 Sex and Gender Information Value Date Recorded Sex Assigned at Not on file Legal Sex Male 3:18 AM LOAN DOCUMENTS CLOSER Gender Identity Not on file Sexual Orientation Not on file Last Filed Vital Signs Vital Sign Reading Time Taken Comments Blood Pressure 163/97 08/13/2024 3:44 AM LOAN DOCUMENTS CLOSER Pulse 112 08/13/2024 3:44 AM LOAN DOCUMENTS CLOSER Temperature 37.3 C (99.2 F) 08/13/2024 1:23 AM LOAN DOCUMENTS CLOSER Respiratory Rate 25 08/13/2024 3:44 AM LOAN DOCUMENTS CLOSER Oxygen Saturation 97% 08/13/2024 3:44 AM LOAN DOCUMENTS CLOSER Inhaled Oxygen Concentration - - Weight 147.4 kg (325 lb) 08/13/2024 1:21 AM LOAN DOCUMENTS CLOSER Height 193 cm (6' 4) 08/13/2024 1:21 AM LOAN DOCUMENTS CLOSER Body Mass Index 39.56 08/13/2024 1:21 AM LOAN DOCUMENTS CLOSER Plan of Treatment Health Maintenance Due Date Last Done Comments A1C 1970 ADVANCE CARE PLANNING 1970 ANNUAL REVIEW OF HM ORDERS 1970 CT COLONOGRAPHY 1970 DIABETIC FOOT EXAM 1970 EYE EXAM 1970 FIT 1970 FLEX SIG 1970 LIPID 1970 MICROALBUMIN 1970 NICOTINE/TOBACCO CESSATION COUNSELING Q 1 YR 1970 sDNA (Cologuard) 1970 YEARLY PREVENTIVE VISIT 1973 HIV SCREENING 1985 HEPATITIS C SCREENING 01/23/1988 HEPATITIS B IMMUNIZATION (1 of 3 - 19+ 3-dose series) 1989 Pneumococcal Vaccine: 50+ Years (1 of 2 - PCV) 1989 LUNG CANCER SCREENING 01/23/2020 COVID-19 Vaccine ( season) 2024 06/19/2021, 10/24/2020, 09/27/2020 INFLUENZA VACCINE (#1) 2024 BMP 04/15/2024 04/15/2023, 07/2 11/2022, 09/26/2020, Additional history exists PHQ-2 (once per calendar year) 2024 COLONOSCOPY 10/24/2025 10/25/2015 COLORECTAL CANCER SCREENING 10/24/2025 DTAP/TDAP/TD IMMUNIZATION (3 - Td or Tdap) 06/16/2033 06/16/2023, 05/25/2014 RSV VACCINE (1 - 1-dose 75+ series) 2045 ZOSTER IMMUNIZATION Completed 12/03/2021, HPV IMMUNIZATION Aged Out No longer e ligible based on patient's age to complete this topic MENINGITIS IMMUNIZATION Aged Out No l onger eligible based on patient's age to complete this topic RSV MONOCLONAL ANTIBODY Aged Out No l onger eligible based on patient's age to complete this topic Procedures Procedure Name Priority Date/Time Associated Diagnosis Comments ISTAT GASES LACTATE VENOUS POCT STAT 08/13/2024 1:53 AM LOAN DOCUMENTS CLOSER EXTRA HEPARINIZED SYRINGE STAT 08/13/2024 1:51 AM LOAN DOCUMENTS CLOSER EXTRA TUBE STAT 08/13/2024 1:51 AM LOAN DOCUMENTS CLOSER EKG 12-LEAD, TRACING ONLY STAT 08/13/2024 1:38 AM LOAN DOCUMENTS CLOSER CBC WITH PLATELETS & DIFFERENTIAL STAT 08/13/2024 1:28 AM LOAN DOCUMENTS CLOSER CBC WITH PLATELETS AND DIFFERENTIAL STAT 08/13/2024 1:28 AM LOAN DOCUMENTS CLOSER EXTRA BLOOD BANK PURPLE TOP TUBE STAT 08/13/2024 1:28 AM LOAN DOCUMENTS CLOSER EXTRA BLOOD BANK PURPLE TOP TUBE STAT 08/13/2024 1:28 AM LOAN DOCUMENTS CLOSER EXTRA PURPLE TOP TUBE STAT 08/13/2024 1:28 AM LOAN DOCUMENTS CLOSER EXTRA GREEN TOP (LITHIUM HEPARIN) TUBE STAT 08/13/2024 1:28 AM LOAN DOCUMENTS CLOSER EXTRA TUBE STAT 08/13/2024 1:28 AM LOAN DOCUMENTS CLOSER BASIC METABOLIC PANEL STAT 04/15/2023 7:07 AM CDT from Last 3 Months or Most Recently Relevant to Health Maintenance Results * (ABNORMAL) iStat Gases (lactate) venous, POCT (08/13/2024 1:53 AM LOAN DOCUMENTS CLOSER) [facility] Lactic Acid POCT 1.8 <=2.0 mmol/L 08/13/2024 1:57 AM LOAN DOCUMENTS CLOSER [facility] LAB[facility] POC Bicarbonate Venous POCT 28 21 - 28 mmol/L 08/13/2024 1:57 AM LOAN DOCUMENTS CLOSER [facility] O2 Sat, Venous POCT 30(L) 70 - 75 % 08/13/2024 1:57 AM LOAN DOCUMENTS CLOSER [facility] pCO2 Venous POCT 51(H) 40 - 50 mm Hg 08/13/2024 1:57 AM LOAN DOCUMENTS CLOSER [facility] P[facility] pH Venous POCT 7.35 7.32 - 7.43 08/13/2024 1:57 AM LOAN DOCUMENTS CLOSER [facility] POC pO2 Venous POCT 21(L) 25 - 47 mm Hg 08/13/2024 1:57 AM LOAN DOCUMENTS CLOSER [facility] POC Blood, venous BLOOD SPECIMEN / Unknown 08/13/2024 1:53 AM LOAN DOCUMENTS CLOSER 08/13/2024 1:57 AM LOAN DOCUMENTS CLOSER Nasir PRABHAKAR - AKER POCT Final Result [facility] LABORATORY POC [facility] Acute Care Lab [address] Lab (1st floor, no room number) [place] [address], [facility] * Extra Heparinized Syringe (08/13/2024 1:51 AM LOAN DOCUMENTS CLOSER) [facility] Hold Specimen JIC 08/13/2024 3:03 AM LOAN DOCUMENTS CLOSER [facility] LAB[facility]ATORY Blood, venous BLOOD SPECIMEN / Unknown Venipuncture / Unknown 08/13/2024 1:51 AM LOAN DOCUMENTS CLOSER 08/13/2024 2:02 AM LOAN DOCUMENTS CLOSER us Nasir Beavers MD LAB - BLOOD ORDERABLES Final Res ult LABORATORY [facility] Acute Care Lab [address] Lab (1st floor, no room number) [place] [address] * EKG 12-lead, tracing only (08/13/2024 1:38 AM LOAN DOCUMENTS CLOSER) Systolic Blood Pressure mmHg RADIOLOGY RESULTS Diastolic Blood Pressure mmHg RADIOLOGY RESULTS Ventricular Rate 124 BPM RAD IOLOGY RESULTS Atrial Rate 124 BPM RADIOLOG Y RESULTS MT Interval 178 ms RADIOLOG Y RESULTS QRS Duration 78 ms RADIOLO GY RESULTS QT 298 ms RADIOLOGY RESULTS QTc 428 ms RADIOLOGY RESULTS P [place] 29 degrees RADIOLOGY RESULTS R AXIS -36 degrees RADIOLOGY RESULTS T [place] 25 degrees RADIOLOGY RESULTS Interpretation ECG Sinus tachycardia Left axis deviation 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 rate has increased by 47 bpm Non-specific change in ST segment in Inferior leads Nonspecific T wave abnormality has replaced inverted T waves in Inferior leads Unconfirmed report - interpretation of this ECG is computer generated - see medical record for final interpretation Confirmed by - EMERGENCY ROOM, PHYSICIAN ([id number]), editor department RICA MCKEON ([id number]) on 08/13/2024 7:55:52 AM RADIOLOGY RESULTS 08/13/2024 1:38 AM LOAN DOCUMENTS CLOSER 08/13/2024 7:55 AM LOAN DOCUMENTS CLOSER Nasir Beavers MD ECG ORDERABLES Edited Result - Final RADIOLOGY RESULTS * Extra Blood Bank Purple Top Tube (08/13/2024 1:28 AM LOAN DOCUMENTS CLOSER) Only the most recent of2 resultswithin the time period is included. Hold Specimen JIC 08/13/2024 2:46 AM LOAN DOCUMENTS CLOSER LABORATORY Blood VENOUS LINE / Unknown Venipuncture / Unknown 08/13/2024 1:28 AM LOAN DOCUMENTS CLOSER 08/13/2024 1:39 AM LOAN DOCUMENTS CLOSER Nasir Beavers MD LAB - BLOOD ORDERABLES Final Res ult Performing Organization Address City/[facility]/ZIP Co de Phone Number LABORATORY [facility] Acute Care Lab [address] Lab (1st floor, no room number) [address] * Extra Purple Top Tube (08/13/2024 1:28 AM LOAN DOCUMENTS CLOSER) Hold Specimen [facility] 08/13/2024 2:46 AM LOAN DOCUMENTS CLOSER [facility] LABORATORY Blood VENOUS LINE / Unknown Venipuncture / Unknown 08/13/2024 1:28 AM LOAN DOCUMENTS CLOSER 08/13/2024 1:39 AM LOAN DOCUMENTS CLOSER Nasir Beavers MD LAB - BLOOD ORDERABLES Final Res ult Performing Organization Address [facility]/ZIP Co de Phone Number [facility] Care Lab [address] Lab (1st floor, no room number) [address] * Extra Green Top ([place] Heparin) Tube (08/13/2024 1:28 AM LOAN DOCUMENTS CLOSER) Hold Specimen [facility] 08/13/2024 2:46 AM LOAN DOCUMENTS CLOSER [facility] LABORATORY Blood VENOUS LINE / Unknown Venipuncture / Unknown 08/13/2024 1:28 AM LOAN DOCUMENTS CLOSER 08/13/2024 1:39 AM LOAN DOCUMENTS CLOSER Nasir Beavers MD LAB - BLOOD ORDERABLES Final Res ult Performing Organization Address City/[facility]/ZIP Co de Phone Number [facility] Acute Care Lab [address] Lab (1st floor, no room number) [address] * (ABNORMAL) CBC with platelets and differential (08/13/2024 1:28 AM LOAN DOCUMENTS CLOSER) WBC Count 8.1 4.0 - 11.0 10e3/uL 08/13/2024 2:12 AM LOAN DOCUMENTS CLOSER [facility] LABORATORY RBC Count 5.83 4.40 - 5.90 10e6/uL 08/13/2024 2:12 AM LOAN DOCUMENTS CLOSER [facility] LABORATORY Hemoglobin 18.2(H) 13.3 - 17.7 g/dL 08/13/2024 2:12 AM LOAN DOCUMENTS CLOSER [facility] LABORATORY Hematocrit 50.6 40.0 - 53.0 % 08/13/2024 2:12 AM LOAN DOCUMENTS CLOSER LABORATORY MCV 87 78 - 100 fL 08/13/2024 2:12 AM LOAN DOCUMENTS CLOSER [facility] LABORATORY MCH 31.2 26.5 - 33.0 pg 08/13/2024 2:12 AM LOAN DOCUMENTS CLOSER LABORATORY MCHC 36.0 31.5 - 36.5 g/dL 08/13/2024 2:12 AM LOAN DOCUMENTS CLOSER LABORATORY RDW 12.5 10.0 - 15.0 % 08/13/2024 2:12 AM LOAN DOCUMENTS CLOSER LABORATORY Platelet Count 165 150 - 450 10e3/uL 08/13/2024 2:12 AM LOAN DOCUMENTS CLOSER LABORATORY % Neutrophils 58 % 08/13/2024 2:12 AM LOAN DOCUMENTS CLOSER LABORATORY % Lymphocytes 28 % 08/13/2024 2:12 AM LOAN DOCUMENTS CLOSER LABORATORY % Monocytes 10 % 08/13/2024 2:12 AM LOAN DOCUMENTS CLOSER LABORATORY % Eosinophils 4 % 08/13/2024 2:12 AM [facility] % Basophils 1 % 08/13/2024 2:12 AM LOAN DOCUMENTS CLOSER LABORATORY % Immature Granulocytes 0 % 08/13/2024 2:12 AM LOAN DOCUMENTS CLOSER LABORATORY NRBCs per 100 WBC 0 <1 /100 025 2:12 AM LOAN DOCUMENTS CLOSER LABORATORY Absolute Neutrophils 4.7 1.6 - 8.3 10e3/uL 08/13/2024 2:12 AM [facility] Absolute Lymphocytes 2.3 0.8 - 5.3 10e3/uL 08/13/2024 2:12 AM LOAN DOCUMENTS CLOSER LABORATORY Absolute Monocytes 0.8 0.0 - 1.3 10e3/uL 08/13/2024 2:12 AM [facility] Absolute Eosinophils 0.3 0.0 - 0.7 10e3/uL 08/13/2024 2:12 AM LOAN DOCUMENTS CLOSER LABORATORY Absolute Basophils 0.1 0.0 - 0.2 10e3/uL 08/13/2024 2:12 AM [facility] Absolute Immature Granulocytes 0.0 <=0.4 10e3/uL 08/13/2024 2:12 AM [facility] Absolute NRBCs 0.0 10e3/uL 08/13/2024 2:12 AM [facility] Blood VENOUS LINE / Unknown Venipuncture / Unknown 08/13/2024 1:28 AM LOAN DOCUMENTS CLOSER 08/13/2024 1:39 AM LOAN DOCUMENTS CLOSER us Nasir Beavers MD LAB - BLOOD ORDERABLES Final Res ult RH LABORATORY [facility] Acute Care Lab [address] Lab (1st floor, no room number) [place] [address], [facility] * (ABNORMAL) Basic metabolic panel (04/15/2023 7:07 AM CDT) [facility] Sodium 129(L) 135 - 145 mmol/L 04/15/2023 7:53 AM CDT LABORATORY Comment:Reference intervals for this test were updated on 04/08/2023 to more accurately reflect our healthy population. There may be differences in the flagging of prior results with similar values performed with this method. Interpretation of those prior results can be made in the context of the updated reference intervals. Potassium 4.9 3.4 - 5.3 mmol/L 04/15/2023 7:53 AM CDT LABORATORY Chloride 94(L) 98 - 107 mmol/L 04/15/2023 7:53 AM CDT LABORATORY Carbon Dioxide (CO2) 22 22 - 29 mmol/L 04/15/2023 7:53 AM CDT LABORATORY Anion Gap 13 7 - 15 mmol/L 04/15/2023 7:53 AM CDT LABORATORY Urea Nitrogen 20.0 6.0 - 20.0 mg/dL 04/15/2023 7:53 AM CDT LABORATORY Creatinine 0.88 0.67 - 1.17 mg/dL 04/15/2023 7:53 AM CDT LABORATORY GFR Estimate >90 >60 mL/min/1. 73m2 04/15/2023 7:53 AM CDT LABORATORY Calcium 9.9 8.6 - 10.0 mg/dL 04/15/2023 7:53 AM CDT LABORATORY Glucose 706(HH) 70 - 99 mg/dL 04/15/2023 7:53 AM CDT LABORATORY Blood BLOOD SPECIMEN / Unknown Venipuncture / Unknown 04/15/2023 7:07 AM CDT 04/15/2023 7:14 AM CDT us Juan Sena MD LAB - BLOOD ORDERABLES Fi nal Result [facility] Acute Care Lab [address] Lab (1st floor, no room number) [place] [address], [place] [phone] from Last 3 Months or Most Recently Relevant to Health Maintenance Insurance [employer] OUT OF STATE Care Teams Cathead Operator Relationship Specialty Start Date End Date Brijesh Rossi PCP - General Family Practice 07/16/19
--- OUTSIDE RECORDS SUMMARY | 2024-08-14 15:20 | XMS_ITS | Encounter Summary ---
Author Organization [facility] Address [address] [place] [id number] Care Team Providers Care Cross Tie Turner Name Role Phone Brijesh Rossi Primary Care Provider [phone] Encounter Details Date Type Department Care Team (Latest Contact Info) Description 08/13/2024 Travel Social History Tobacco Use Types Packs/Day Years Used Date Smoking Tobacco: Some Days Smokeless Tobacco: Never Alcohol Use Standard Drinks/Week Comments Yes 2 (1 standard drink = 0.6 oz pur e alcohol) Adolescent Education Answer Date Record ed Getting School Help Needed Not on file 04/15 Sex and Gender Information Value Date Recorded Sex Assigned at Not on file Legal Sex Male 3:18 AM SENIOR ONLINE MARKETING MANAGER Gender Identity Not on file Sexual Orientation Not on file documented as of this encounter Plan of Treatment Not on file documented as of this encounter Visit Diagnoses Not on filedocumented in this encounter Care Teams Cross Tie Turner Relationship Specialty Start Date End Date Brijesh Rossi PCP - General Family Practice 07/16/19 documented as of this encounter
--- OUTSIDE RECORDS SUMMARY | 2024-08-14 15:20 | XMS_ITS | Encounter Summary ---
Author Organization [facility] Address [address] [place] [address] Care Team Providers Care Drill Press Tender Name Role Phone RossiBrijesh Primary Care Provider [phone] Reason for Visit * Reason Comments Epistaxis Encounter Details Date Type Department Care Team (Late st Contact Info) Description 08/13/2024 1:17 AM TRIBAL JUDGE - 08/13/2024 3:55 AM TRIBAL JUDGE Emergency [facility] Emergency Dept [address] [place] [id number] Nasir Beavers MD [facility] [address] [place], [place] [id number] Epistaxis Discharge Disposition: Home or Self Care Social History Tobacco Use Types Packs/Day Years [...] on file Legal Sex Male 3:18 AM TRIBAL JUDGE Gender Identity Not on file Sexual Orientation Not on file documented as of this encounter Last Filed Vital Signs Vital Sign Reading Time Taken Comments Blood Pressure 163/97 08/13/2024 3:44 AM TRIBAL JUDGE Pulse 112 08/13/2024 3:44 AM TRIBAL JUDGE Temperature 37.3 C (99.2 F) 08/13/2024 1:23 AM TRIBAL JUDGE Respiratory Rate 25 08/13/2024 3:44 AM TRIBAL JUDGE Oxygen Saturation 97% 08/13/2024 3:44 AM TRIBAL JUDGE Inhaled Oxygen Concentration - - Weight 147.4 kg (325 lb) 08/13/2024 1:21 AM TRIBAL JUDGE Height 193 cm (6' 4) 08/13/2024 1:21 AM TRIBAL JUDGE Body Mass Index 39.56 08/13/2024 1:21 AM TRIBAL JUDGE documented in this encounter Discharge Instructions * Discharge Instructions* Nasir Beavers MD - 08/13/2024 2:02 AM TRIBAL JUDGE Discharge Instructions Epistaxis Today you were seen for a nosebleed. Nosebleeds (the medical term is epistaxis) are very common. Almost every person has had at least one in their lifetime. Although the amount of blood loss can appear dramatic, nosebleeds rarely cause serious problems. The most common causes are dry air or nose p icking, but they also are common in people who have allergies, high blood pressure, or are on bloodthinners (such as Coumadin, Aspirin or Plavix). If you or your child gets a nosebleed, the important thing is to know how to take care of it. With the right self-care, most nosebleeds will stop on their own. Generally, every Emergency Department visit should have a follow-up clinic visit with either a primary or a specialty clinic/provider. Please follow-up as instructed by your emergency provider today. Return to the Emergency Department if: Your nose is bleeding a very large amount of blood and you are unable to stop it. You get very pale, faint, or tired. You cannot get the bleeding to stop after following these instructions. Treatment: Your provider may tell you to use a decongestant nose spray, like Afrin?? (oxymetazoline), in both nostrils in the morning and at night for the next three days. Do not use this medicine for more thanthree days at a time. If you do, it will cause nasal congestion. Use a moisturizer. A small amount of Vaseline?? to the inside of your nostrils for moisture before bed is one option. There are nasal sprays available [id number] for this purpose as well. Usinga humidifier in your bedroom or home will help as well when the air is dry. For the next three days, do not blow your nose or put anything in your nose. You may sniffle, or dab the outside of your nose. Do not bend with your head below your waist for the next three days. Do not lift anything so heavy that you have to strain. If you received nasal packing, please do not remove the packing until seen by an Ear, Nose, and Throat (ENT) specialist. If antibiotics have been given with the packing, please take as directed. If your nose starts to bleed again: Blow your nose to get rid of some of the clots that have formed inside your nostrils. This may increase the bleeding temporarily, but that is okay. Mccamey decongestant nose spray (like Afrin??) into both nostrils to constrict the blood vessels. Sit or stand while bending forward slightly at the waist. Do not lie down or tilt your head back. This may cause you to swallow blood and can lead to vomiting. Registered Midwife the soft part of BOTH nostrils at the bottom of your nose and squeeze your nose closed for at least 5 minutes (for children) or 10 to 15 minutes (for adults). Use a clock to time yourself. Do not release the pressure every so often to check whether the bleeding has stopped. Many people hurt their chances of stopping the bleeding by releasing the pressure too soon or too often. If you follow the steps outlined above, and your nose continues to bleed, repeat all the steps oncemore. Apply pressure for a total of at least 30 minutes. If you continue to bleed even then, seek medical attention. If you were given a prescription for medicine here today, be sure to read all of the information (including the package insert) that comes with your prescription. This will include important information about the medicine, its side effects, and any warnings that you need to know about. The pharmacist who fills the prescription can provide more information and answer questions you may have about the medicine. If you have questions or concerns that the pharmacist cannot address, please call or return to the Emergency Department. Remember that you can always come back to the Emergency Department if you are not able to see your regular provider in the amount of time listed above, if you get any new symptoms, or if there is anything that worries you. AL JUDGE documented in this encounter Medications at Time of Discharge AMLODIPINE BESYLATE PO Take 10 mg by mouth daily amoxicillin-clavu lanate (AUGMENTIN) 875-125 MG tablet Take 1 tablet by mouth 2 times daily for 7 days. 14 tablet 08/13/2024 08/20/2024 gabapentin (NEURONTIN) 300 MG capsule Take 300 mg by mouth 2 times daily 2 tablets in AM; 6 tablet at night HYDROCHLOROTHIAZI DE PO Take 25 mg by mouth daily PRAVASTATIN SODIUM PO Take 40 mg by mouth every evening Varenicline Tartrate (CHANTIX PO) Take 1 mg by mouth 2 times daily documented as of this encounter ED Notes * Chanel Lee RN - 08/13/2024 2:53 AM CST Assisted pt to stand at bedside to use urinal. Pt tolerated well and voided 500 ml. AL JUDGE AL JUDGE * Nasir Beavers MD - 08/13/2024 1:53 AM CST Emergency Department Note History of Present Illness Chief Complaint Epistaxis HPI Jules Potter is a 54 year old male with history of hypertension and hyperlipidemia who presentsto the ED with a nosebleed. Patient reports about 2 hours ago he sneezed and triggered a nosebleed that has been persistent since, primarily on the right side. He tried repositioning and pressure at home with no relief. Per EMS they tried afrin and a nose clamp which was not successful. He states he is not on blood thinners. Independent Historian EMS as detailed above. Review of External Notes I reviewed Care Everywhere and updated Epic Past Medical History Medical History and Problem List Past Medical History: Diagnosis Date Hypercholesterolemia Hypertension Obesity Peripheral neuropathy Restless leg syndrome Type 2 diabetes mellitus (H) Medications AMLODIPINE BESYLATE PO gabapentin (NEURONTIN) 300 MG capsule HYDROCHLOROTHIAZIDE PO PRAVASTATIN SODIUM PO Varenicline Tartrate (CHANTIX PO) Surgical History Past Surgical History: Procedure Laterality Date Amputation of second toe Right ARTHROPLASTY TOE, HEMIPHALENGECTOMY, TENOTOMY, AND CAPSULOTOMY Left CHOLECYSTECTOMY ESOPHAGOSCOPY, GASTROSCOPY, DUODENOSCOPY (EGD), COMBINED N/A 05/31/2014 Procedure: ESOPHAGOGASTRODUODENOSCOPY with biopsy; Surgeon: Wero Aguilar MD; Location: [facility]; Service: TONSILLECTOMY Physical Exam Patient Vitals for the past 24 hrs: BP Temp Temp src Pulse Resp SpO2 Height Weight 08/13/24 0344 163/97 -- -- 112 25 97 % -- -- 08/13/24 0139 -- -- -- 122 26 92 % -- -- 08/13/24 0123 -- 99.2 ??F (37.3 ??C) Axillary -- -- -- -- -- 08/13/24 0121 198/102 -- Axillary 122 18 94 % 1.93 m (6' 4) 147.4 kg (325 lb) Physical Exam Nursing note and vitals reviewed. Constitutional: Cooperative. HENT: Mouth/Throat: Mucous membranes are normal. Active hemorrhage in right nares with clot. Cardiovascular: Tachycardic rate, regular rhythm and normal heart sounds. No murmur. Pulmonary/Chest: Effort normal and breath sounds normal. No respiratory distress. No wheezes. No rales. Abdominal: Soft. Normal appearance Neurological: Alert. Oriented x 3 Skin: Skin is warm and dry. Psychiatric: Normal mood and affect. Diagnostics Lab Results Labs Ordered and Resulted from Time of ED Arrival to Time of ED Departure ISTAT GASES LACTATE VENOUS POCT - Abnormal Result Value Lactic Acid POCT 1.8 Bicarbonate Venous POCT 28 O2 Sat, Venous POCT 30 (*) pCO2 Venous POCT 51 (*) pH Venous POCT 7.35 pO2 Venous POCT 21 (*) CBC WITH PLATELETS AND DIFFERENTIAL - Abnormal WBC Count 8.1 RBC Count 5.83 Hemoglobin 18.2 (*) Hematocrit 50.6 MCV 87 MCH 31.2 MCHC 36.0 RDW 12.5 Platelet Count 165 % Neutrophils 58 % Lymphocytes 28 % Monocytes 10 % Eosinophils 4 % Basophils 1 % Immature Granulocytes 0 NRBCs per 100 WBC 0 Absolute Neutrophils 4.7 Absolute Lymphocytes 2.3 Absolute Monocytes 0.8 Absolute Eosinophils 0.3 Absolute Basophils 0.1 Absolute Immature Granulocytes 0.0 Absolute NRBCs 0.0 Imaging No orders to display EKG ECG taken at 0138, ECG read at 0143 Sinus tachycardia Left axis deviation Inferior infarct, age undetermined Rate 124 bpm. MA interval 178 ms. QRS duration 78 ms. QT/QTc 298/428 ms. P-R-T axes 29 -36 25. Independent Interpretation None ED Course Medications Administered Medications - No data to display Procedures Rapid Rhino Nasal Packing PHYSICIAN: Nasir Beavers INDICATION: Epistaxis ANESTHESIA: Afrin nasal spray and lubricating jelly TECHNIQUE: 5.5 cm Rapid Rhino was inserted into the right naris to provide pressure. The patient had adequate hemostasis after application of packing, and the patient was generally comfortable after the procedure. The patient tolerated the procedure well with no immediate complications. Discussion of Management None ED Course ED Course as of 08/13/24 0413 FriAug 13, 2024 0153 I obtained history and examined the patient as noted above. 0334 I rechecked the patient and he is no longer bleeding. Additional Documentation None Medical Decision Making / Diagnosis [facility] Jules Potter is a 54 year old male who presents for evaluation of nasal bleeding and epistaxis.The bleeding was controlled with interventions in the ED and therefore supportive outpatient management is indicated. Close follow-up with ENT and primary care; see discharge instructions. The risks and benefits of packing were discussed with patient verbally and they consented to packing. See procedure note above for packing. There was no bleeding after the nasal pack was placed. I will place patient on prophylactic antibiotics to minimize risk of sinusitis and toxic shock syndrome. Disposition The patient was discharged. Diagnosis ICD-10-CM 1. Epistaxis R04.0 Discharge Medications Discharge Medication List as of 08/13/2024 3:40 AM START taking these medications Details amoxicillin-clavulanate (AUGMENTIN) 875-125 MG tablet Take 1 tablet by mouth 2 times daily for 7 days., Disp-14 tablet, R-0, Local Print Scribe Disclosure: Jamshid Hatfield, am serving as a scribe at 2:01 AM on 08/13/2024 to document services personally performed by Nasir Beavers MD based on my observations and the provider's statements to me. Nasir Beavers MD 08/13/246 AL JUDGE * Chanel Lee RN - 08/13/2024 1:34 AM CST Images from the original note were not included. Patient arrives via EMS from home. Patient endorses that 2 hours prior to arrival he sneezed and his nose began bleeding. Patient tried pressure and positioning at home with no relief. EMS attempted afrin and a nose clamp which was not successful. Patient A&O, tachy, hypertensive, and diaphoretic. Triage Assessment (Adult) Row Name 08/13/24 0129 Triage Assessment Airway WDL WDL Respiratory WDL Respiratory WDL WDL Skin Circulation/Temperature WDL Skin Circulation/Temperature WDL all Skin Temperature cool clammy Cardiac WDL Cardiac WDL X;rhythm Pulse Rate & Regularity tachycardic Peripheral/Neurovascular WDL Peripheral Neurovascular WDL WDL Cognitive/Neuro/Behavioral WDL Cognitive/Neuro/Behavioral WDL WDL AL JUDGE * Juliana Porter RN - 08/13/2024 1:17 AM CST Bed: ED16 Expected date: Expected time: Means of arrival: Comments: [id number] AL JUDGE documented in this encounter Plan of Treatment Not on file documented as of this encounter Procedures Procedure Name Priority Date/Time Associated Diagnosis Comments ISTAT GASES LACTATE VENOUS POCT STAT 08/13/2024 1:53 AM TRIBAL JUDGE EXTRA HEPARINIZED SYRINGE STAT 08/13/2024 1:51 AM TRIBAL JUDGE EXTRA TUBE STAT 08/13/2024 1:51 AM TRIBAL JUDGE EKG 12-LEAD, TRACING ONLY STAT 08/13/2024 1:38 AM TRIBAL JUDGE EXTRA TUBE STAT 08/13/2024 1:28 AM TRIBAL JUDGE EXTRA BLOOD BANK PURPLE TOP TUBE STAT 08/13/2024 1:28 AM TRIBAL JUDGE EXTRA BLOOD BANK PURPLE TOP TUBE STAT 08/13/2024 1:28 AM TRIBAL JUDGE EXTRA PURPLE TOP TUBE STAT 08/13/2024 1:28 AM TRIBAL JUDGE EXTRA GREEN TOP (LITHIUM HEPARIN) TUBE STAT 08/13/2024 1:28 AM TRIBAL JUDGE CBC WITH PLATELETS AND DIFFERENTIAL STAT 08/13/2024 1:28 AM TRIBAL JUDGE CBC WITH PLATELETS & DIFFERENTIAL STAT 08/13/2024 1:28 AM TRIBAL JUDGE documented in this encounter Results * (ABNORMAL) iStat Gases (lactate) venous, POCT (08/13/2024 1:53 AM TRIBAL JUDGE) Lactic Acid POCT 1.8 <=2.0 mmol/L 08/13/2024 1:57 AM TRIBAL JUDGE [facility] POC Bicarbonate Venous POCT 28 21 - 28 mmol/L 08/13/2024 1:57 AM TRIBAL JUDGE [facility] O2 Sat, Venous POCT 30(L) 70 - 75 % 08/13/2024 1:57 AM TRIBAL JUDGE [facility] pCO2 Venous POCT 51(H) 40 - 50 mm Hg 08/13/2024 1:57 AM TRIBAL JUDGE [facility] pH Venous POCT 7.35 7.32 - 7.43 08/13/2024 1:57 AM TRIBAL JUDGE [facility] pO2 Venous POCT 21(L) 25 - 47 mm Hg 08/13/2024 1:57 AM TRIBAL JUDGE [facility] Blood, venous BLOOD SPECIMEN / Unknown 08/13/2024 1:53 AM TRIBAL JUDGE 08/13/2024 1:57 AM TRIBAL JUDGE us Nasir Beavers MD LAB - BEAKER POCT Final Result [facility] POC [facility] [address] [facility] ([facility], no room number) [place] [address], [facility] * Extra Heparinized Syringe (08/13/2024 1:51 AM TRIBAL JUDGE) Hold Specimen JIC 08/13/2024 3:03 AM TRIBAL JUDGE [facility] Blood, venous BLOOD SPECIMEN / Unknown Venipuncture / Unknown 08/13/2024 1:51 AM TRIBAL JUDGE 08/13/2024 2:02 AM TRIBAL JUDGE Nasir Beavers MD LAB - BLOOD ORDERABLES Final Res ult LABORATORY [facility] Acute Care Lab [address] Lab (1st floor, no room number) [place] [address] * EKG 12-lead, tracing only (08/13/2024 1:38 AM TRIBAL JUDGE) Systolic Blood Pressure mmHg RADIOLOGY RESULTS Diastolic Blood Pressure mmHg RADIOLOGY RESULTS Ventricular Rate 124 BPM RAD IOLOGY RESULTS Atrial Rate 124 BPM RADIOLOG Y RESULTS MA Interval 178 ms RADIOLOG Y RESULTS QRS Duration 78 ms RADIOLO GY RESULTS QT 298 ms RADIOLOGY RESULTS QTc 428 ms RADIOLOGY RESULTS P [place] 29 degrees RADIOLOGY RESULTS R AXIS -36 degrees RADIOLOGY RESULTS T [place] 25 degrees RADIOLOGY RESULTS Interpretation ECG Sinus [...] Confirmed by - EMERGENCY ROOM, PHYSICIAN ([id number]), sports editor RICA MCKEON ([id number]) on 08/13/2024 7:55:52 AM RADIOLOGY RESULTS 08/13/2024 1:38 AM TRIBAL JUDGE 08/13/2024 7:55 AM TRIBAL JUDGE Nasir Beavers MD ECG ORDERABLES Edited Result - Final RADIOLOGY RESULTS * (ABNORMAL) CBC with platelets and differential (08/13/2024 1:28 AM TRIBAL JUDGE) WBC Count 8.1 4.0 - 11.0 10e3/uL 08/13/2024 2:12 AM TRIBAL JUDGE LABORATORY RBC Count 5.83 4.40 - 5.90 10e6/uL 08/13/2024 2:12 AM TRIBAL JUDGE [facility] Hemoglobin 18.2(H) 13.3 - 17.7 g/dL 08/13/2024 2:12 AM TRIBAL JUDGE [facility] Hematocrit 50.6 40.0 - 53.0 % 08/13/2024 2:12 AM TRIBAL JUDGE [facility] MCV 87 78 - 100 fL 08/13/2024 2:12 AM TRIBAL JUDGE [facility] MCH 31.2 26.5 - 33.0 pg 08/13/2024 2:12 AM TRIBAL JUDGE [facility] MCHC 36.0 31.5 - 36.5 g/dL 08/13/2024 2:12 AM TRIBAL JUDGE [facility] RDW 12.5 10.0 - 15.0 % 08/13/2024 2:12 AM TRIBAL JUDGE [facility] Platelet Count 165 150 - 450 10e3/uL 08/13/2024 2:12 AM TRIBAL JUDGE [facility] % Neutrophils 58 % 08/13/2024 2:12 AM TRIBAL JUDGE [facility] % Lymphocytes 28 % 08/13/2024 2:12 AM TRIBAL JUDGE [facility] % Monocytes 10 % 08/13/2024 2:12 AM TRIBAL JUDGE [facility] % Eosinophils 4 % 08/13/2024 2:12 AM TRIBAL JUDGE LABORATORY % Basophils 1 % 08/13/2024 2:12 AM TRIBAL JUDGE [facility] % Immature Granulocytes 0 % 08/13/2024 2:12 AM TRIBAL JUDGE LABORATORY NRBCs per 100 WBC 0 <1 /100 025 2:12 AM TRIBAL JUDGE LABORATORY Absolute Neutrophils 4.7 1.6 - 8.3 10e3/uL 08/13/2024 2:12 AM TRIBAL JUDGE [facility] Absolute Lymphocytes 2.3 0.8 - 5.3 10e3/uL 08/13/2024 2:12 AM TRIBAL JUDGE LABORATORY Absolute Monocytes 0.8 0.0 - 1.3 10e3/uL 08/13/2024 2:12 AM TRIBAL JUDGE [facility] Absolute Eosinophils 0.3 0.0 - 0.7 10e3/uL 08/13/2024 2:12 AM TRIBAL JUDGE LABORATORY Absolute Basophils 0.1 0.0 - 0.2 10e3/uL 08/13/2024 2:12 AM TRIBAL JUDGE [facility] Absolute Immature Granulocytes 0.0 <=0.4 10e3/uL 08/13/2024 2:12 AM TRIBAL JUDGE LABORATORY Absolute NRBCs 0.0 10e3/uL 08/13/2024 2:12 AM TRIBAL JUDGE [facility] Blood VENOUS LINE / Unknown Venipuncture / Unknown 08/13/2024 1:28 AM TRIBAL JUDGE 08/13/2024 1:39 AM TRIBAL JUDGE us Nasir Beavers MD LAB - BLOOD ORDERABLES Final Res ult [facility] Lab [address] Lab (1st floor, no room number) [place] [address], [place] * Extra Blood Bank Purple Top Tube (08/13/2024 1:28 AM TRIBAL JUDGE) Hold Specimen [facility] 08/13/2024 2:46 AM TRIBAL JUDGE RH LABORATORY Blood VENOUS LINE / Unknown Venipuncture / Unknown 08/13/2024 1:28 AM TRIBAL JUDGE 08/13/2024 1:39 AM TRIBAL JUDGE us Nasir Beavers MD LAB - BLOOD ORDERABLES Final Res ult Performing Organization Address City/[facility]/ZIP Co de Phone Number [facility] Lab [address] Lab (1st floor, no room number) [place] [address], [place] * Extra Blood Bank Purple Top Tube (08/13/2024 1:28 AM TRIBAL JUDGE) Hold Specimen [facility] 08/13/2024 2:46 AM TRIBAL JUDGE [facility] LAB[facility]AT[facility] Blood VENOUS LINE / Unknown Venipuncture / Unknown 08/13/2024 1:28 AM TRIBAL JUDGE 08/13/2024 1:39 AM TRIBAL JUDGE us Nasir Beavers MD LAB - BLOOD ORDERABLES Final Res ult [facility] Lab [address] Lab (1st floor, no room number) [place] [address], [place] * Extra Purple Top Tube (08/13/2024 1:28 AM TRIBAL JUDGE) Hold Specimen [facility] 08/13/2024 2:46 AM TRIBAL JUDGE [facility] Blood VENOUS LINE / Unknown Venipuncture / Unknown 08/13/2024 1:28 AM TRIBAL JUDGE 08/13/2024 1:39 AM TRIBAL JUDGE Nasir Beavers MD LAB - BLOOD ORDERABLES Final Res ult [facility] [address] [place] Lab (1st floor, no room number) [place] [address] * Extra Green Top ([place] Heparin) Tube (08/13/2024 1:28 AM TRIBAL JUDGE) Hold Specimen [facility] 08/13/2024 2:46 AM TRIBAL JUDGE RH LAB[facility]ATORY Blood VENOUS LINE / Unknown Venipuncture / Unknown 08/13/2024 1:28 AM TRIBAL JUDGE 08/13/2024 1:39 AM TRIBAL JUDGE Nasir Beavers MD LAB - BLOOD ORDERABLES Final Res ult [facility] Lab [address] [employer] Lab (1st floor, no room number) [place] [id number] [place] [address] documented in this encounter Visit Diagnoses Diagnosis Epistaxis documented in this encounter Administered Medications Inactive Administered Medications - up to 3 most recent administrations Medication Order MAR Action Action Date Dose Rate Site LORazepam (ATIVAN) injection 0.5 mg 0.5 mg, Intravenous, ONCE, On Fri08/13/24 at 0210, For 1 dose, IV Route: Dilute with equal volume NS prior to use. This drug may cause significant respiratory depression. Monitor respiratory status and vital signs carefully for 1 hour after each dose. $Given 08/13/2024 2:11 AM TRIBAL JUDGE 0.5 mg documented in this encounter Active and Recently Administered Medications Times are shown in TRIBAL JUDGE. Scheduled Medication Order 08/11/2024 08/12/2024 08/13/2024 LORazepam (ATIVAN) injection 0.5 mg (COMPLETED) 0.5 mg, Intravenous, ONCE, On Fri08/13/24 at 0210, For 1 dose, IV Route: Dilute with equal volume NS prior to use. This drug may cause significant respiratory depression. Monitor respiratory status and vital signs carefully for 1 hour after each dose. 0211 ($Given - Provi yolanda: Chanel Lee RN) documented in this encounter Care Teams Drill Press Tender Relationship Specialty Start Date End Date FloBrijesh PCP - General Family Practice 07/16/19 documented as of this encounter
--- OUTSIDE RECORDS SUMMARY | 2024-08-14 15:20 | XMS_ITS | Referral Summary ---
Author Organization [facility] Address [address] [place] [id number] Care Team Providers Care Carder Blankets Name Role Phone Flo Brijesh Primary Care Provider [phone] Encounters Date Type Department Care Team Description 08/13/2024 Travel 08/13/2024 1:17 AM PHOTOLITH OPERATOR - 08/13/2024 3:55 AM [facility] Emergency Dept [address] [place] [id number] [phone] Nasir Beavers MD Epistaxis Discharge Disposition: Home or Self Care from Last 3 Months Allergies Active Allergy Reactions Criticality Noted Date [...] Hyperlipidemia 09/15/2019 RLS (restless legs syndrome) 05/14/2013 Social History Tobacco Use Types Packs/Day Years [...] on file Legal Sex Male 3:18 AM PHOTOLITH OPERATOR Gender Identity Not on file Sexual Orientation Not on file Last Filed Vital Signs Vital Sign Reading Time Taken Comments Blood Pressure 163/97 08/13/2024 3:44 AM PHOTOLITH OPERATOR Pulse 112 08/13/2024 3:44 AM PHOTOLITH OPERATOR Temperature 37.3 C (99.2 F) 08/13/2024 1:23 AM PHOTOLITH OPERATOR Respiratory Rate 25 08/13/2024 3:44 AM PHOTOLITH OPERATOR Oxygen Saturation 97% 08/13/2024 3:44 AM PHOTOLITH OPERATOR Inhaled Oxygen Concentration - - Weight 147.4 kg (325 lb) 08/13/2024 1:21 AM PHOTOLITH OPERATOR Height 193 cm (6' 4) 08/13/2024 1:21 AM PHOTOLITH OPERATOR Body Mass Index 39.56 08/13/2024 1:21 AM PHOTOLITH OPERATOR Plan of Treatment Not on file Procedures Procedure Name Priority Date/Time Associated Diagnosis Comments ISTAT GASES LACTATE VENOUS POCT STAT 08/13/2024 1:53 AM PHOTOLITH OPERATOR EXTRA HEPARINIZED SYRINGE STAT 08/13/2024 1:51 AM PHOTOLITH OPERATOR EXTRA TUBE STAT 08/13/2024 1:51 AM PHOTOLITH OPERATOR EKG 12-LEAD, TRACING ONLY STAT 08/13/2024 1:38 AM PHOTOLITH OPERATOR CBC WITH PLATELETS & DIFFERENTIAL STAT 08/13/2024 1:28 AM PHOTOLITH OPERATOR CBC WITH PLATELETS AND DIFFERENTIAL STAT 08/13/2024 1:28 AM PHOTOLITH OPERATOR EXTRA BLOOD BANK PURPLE TOP TUBE STAT 08/13/2024 1:28 AM PHOTOLITH OPERATOR EXTRA BLOOD BANK PURPLE TOP TUBE STAT 08/13/2024 1:28 AM PHOTOLITH OPERATOR EXTRA PURPLE TOP TUBE STAT 08/13/2024 1:28 AM PHOTOLITH OPERATOR EXTRA GREEN TOP (LITHIUM HEPARIN) TUBE STAT 08/13/2024 1:28 AM PHOTOLITH OPERATOR EXTRA TUBE STAT 08/13/2024 1:28 AM PHOTOLITH OPERATOR BASIC METABOLIC PANEL STAT 04/15/2023 7:07 AM CDT from Last 3 Months or Most Recently Relevant to Health Maintenance Results * (ABNORMAL) iStat Gases (lactate) venous, POCT (08/13/2024 1:53 AM PHOTOLITH OPERATOR) Pathologist [facility] Lactic Acid POCT 1.8 <=2.0 mmol/L 08/13/2024 1:57 AM PHOTOLITH OPERATOR [facility] Bicarbonate Venous POCT 28 21 - 28 mmol/L 08/13/2024 1:57 AM PHOTOLITH OPERATOR [facility] O2 Sat, Venous POCT 30(L) 70 - 75 % 08/13/2024 1:57 AM PHOTOLITH OPERATOR [facility] pCO2 Venous POCT 51(H) 40 - 50 mm Hg 08/13/2024 1:57 AM PHOTOLITH OPERATOR [facility] pH Venous POCT 7.35 7.32 - 7.43 08/13/2024 1:57 AM PHOTOLITH OPERATOR [facility] pO2 Venous POCT 21(L) 25 - 47 mm Hg 08/13/2024 1:57 AM PHOTOLITH OPERATOR [facility] Blood, venous BLOOD SPECIMEN / Unknown 08/13/2024 1:53 AM PHOTOLITH OPERATOR 08/13/2024 1:57 AM PHOTOLITH OPERATOR Nasir ANDREW POCT Final Result [facility] P[facility] [address] Lab (1st floor, no room number) [place] [address], [facility] * Extra Heparinized Syringe (08/13/2024 1:51 AM PHOTOLITH OPERATOR) Hold Specimen [facility] 08/13/2024 3:03 AM PHOTOLITH OPERATOR LABORATORY Blood, venous BLOOD SPECIMEN / Unknown Venipuncture / Unknown 08/13/2024 1:51 AM PHOTOLITH OPERATOR 08/13/2024 2:02 AM PHOTOLITH OPERATOR Nasir Beavers MD LAB - BLOOD ORDERABLES Final Res ult LABORATORY [facility] [address] Lab (1st floor, no room number) [place] [address] * EKG 12-lead, tracing only (08/13/2024 1:38 AM PHOTOLITH OPERATOR) Pathologist [facility] Systolic Blood Pressure mmHg RADIOLOGY RESULTS Diastolic Blood Pressure mmHg RADIOLOGY RESULTS Ventricular Rate 124 BPM RAD IOLOGY RESULTS Atrial Rate 124 BPM RADIOLOG Y RESULTS NM Interval 178 ms RADIOLOG Y RESULTS QRS Duration 78 ms RADIOLO GY RESULTS QT 298 ms RADIOLOGY RESULTS QTc 428 ms RADIOLOGY RESULTS P Mcneal 29 degrees RADIOLOGY RESULTS R AXIS -36 degrees RADIOLOGY RESULTS T Mcneal 25 degrees RADIOLOGY RESULTS Interpretation ECG Sinus [...] by - EMERGENCY ROOM, PHYSICIAN ([id number]), editor continuity and script RICA MCKEON ([id number]) on 08/13/2024 7:55:52 AM RADIOLOGY RESULTS 08/13/2024 1:38 AM PHOTOLITH OPERATOR 08/13/2024 7:55 AM PHOTOLITH OPERATOR Nasir Beavers MD ECG ORDERABLES Edited Result - Final RADIOLOGY RESULTS * Extra Blood Bank Purple Top Tube (08/13/2024 1:28 AM PHOTOLITH OPERATOR) Only the most recent of2 resultswithin the time period is included. Hold Specimen [facility] 08/13/2024 2:46 AM PHOTOLITH OPERATOR [facility] Blood VENOUS LINE / Unknown Venipuncture / Unknown 08/13/2024 1:28 AM PHOTOLITH OPERATOR 08/13/2024 1:39 AM PHOTOLITH OPERATOR us Nasir Beavers MD LAB - BLOOD ORDERABLES Final Res ult [facility] Lab [address] Lab (1st floor, no room number) [address] [place] [address] * Extra Purple Top Tube (08/13/2024 1:28 AM PHOTOLITH OPERATOR) Hold Specimen [facility] 08/13/2024 2:46 AM PHOTOLITH OPERATOR [facility] Blood VENOUS LINE / Unknown Venipuncture / Unknown 08/13/2024 1:28 AM PHOTOLITH OPERATOR 08/13/2024 1:39 AM PHOTOLITH OPERATOR us Nasir Beavers MD LAB - BLOOD ORDERABLES Final Res ult [facility] Lab [address] Lab (1st floor, no room number) [address] * Extra Green Top ([place] Heparin) Tube (08/13/2024 1:28 AM PHOTOLITH OPERATOR) Hold Specimen [facility] 08/13/2024 2:46 AM PHOTOLITH OPERATOR [facility] Blood VENOUS LINE / Unknown Venipuncture / Unknown 08/13/2024 1:28 AM PHOTOLITH OPERATOR 08/13/2024 1:39 AM PHOTOLITH OPERATOR us Nasir Beavers MD LAB - BLOOD ORDERABLES Final Res ult [facility] Lab [address] Lab (1st floor, no room number) [address] [place] [address] * (ABNORMAL) CBC with platelets and differential (08/13/2024 1:28 AM PHOTOLITH OPERATOR) WBC Count 8.1 4.0 - 11.0 10e3/uL 08/13/2024 2:12 AM PHOTOLITH OPERATOR [facility] RBC Count 5.83 4.40 - 5.90 10e6/uL 08/13/2024 2:12 AM PHOTOLITH OPERATOR [facility] Hemoglobin 18.2(H) 13.3 - 17.7 g/dL 08/13/2024 2:12 AM PHOTOLITH OPERATOR [facility] Hematocrit 50.6 40.0 - 53.0 % 08/13/2024 2:12 AM PHOTOLITH OPERATOR [facility] MCV 87 78 - 100 fL 08/13/2024 2:12 AM PHOTOLITH OPERATOR [facility] MCH 31.2 26.5 - 33.0 pg 08/13/2024 2:12 AM PHOTOLITH OPERATOR LABORATORY MCHC 36.0 31.5 - 36.5 g/dL 08/13/2024 2:12 AM PHOTOLITH OPERATOR LABORATORY RDW 12.5 10.0 - 15.0 % 08/13/2024 2:12 AM PHOTOLITH OPERATOR LABORATORY Platelet Count 165 150 - 450 10e3/uL 08/13/2024 2:12 AM PHOTOLITH OPERATOR LABORATORY % Neutrophils 58 % 08/13/2024 2:12 AM PHOTOLITH OPERATOR LABORATORY % Lymphocytes 28 % 08/13/2024 2:12 AM PHOTOLITH OPERATOR [facility] % Monocytes 10 % 08/13/2024 2:12 AM PHOTOLITH OPERATOR [facility] % Eosinophils 4 % 08/13/2024 2:12 AM [facility] % Basophils 1 % 08/13/2024 2:12 AM PHOTOLITH OPERATOR [facility] % Immature Granulocytes 0 % 08/13/2024 2:12 AM PHOTOLITH OPERATOR LABORATORY NRBCs per 100 WBC 0 <1 /100 025 2:12 AM PHOTOLITH OPERATOR [facility] Absolute Neutrophils 4.7 1.6 - 8.3 10e3/uL 08/13/2024 2:12 AM PHOTOLITH OPERATOR [facility] Absolute Lymphocytes 2.3 0.8 - 5.3 10e3/uL 08/13/2024 2:12 AM PHOTOLITH OPERATOR LABORATORY Absolute Monocytes 0.8 0.0 - 1.3 10e3/uL 08/13/2024 2:12 AM PHOTOLITH OPERATOR [facility] Absolute Eosinophils 0.3 0.0 - 0.7 10e3/uL 08/13/2024 2:12 AM PHOTOLITH OPERATOR [facility] Absolute Basophils 0.1 0.0 - 0.2 10e3/uL 08/13/2024 2:12 AM PHOTOLITH OPERATOR [facility] Absolute Immature Granulocytes 0.0 <=0.4 10e3/uL 08/13/2024 2:12 AM PHOTOLITH OPERATOR [facility] Absolute NRBCs 0.0 10e3/uL 08/13/2024 2:12 AM PHOTOLITH OPERATOR [facility] Blood VENOUS LINE / Unknown Venipuncture / Unknown 08/13/2024 1:28 AM PHOTOLITH OPERATOR 08/13/2024 1:39 AM PHOTOLITH OPERATOR us Nasir Beavers MD LAB - BLOOD ORDERABLES Final Res ult [facility] [address] [facility] Lab (1st floor, no room number) [place] [address] * (ABNORMAL) Basic metabolic panel (04/15/2023 7:07 AM CDT) Sodium 129(L) 135 - 145 mmol/L 04/15/2023 7:53 AM CDT [facility] Comment:Reference intervals for this test were updated on 04/08/2023 to more accurately reflect our healthy population. There may be differences in the flagging of prior results with similar values performed with this method. Interpretation of those prior results can be made in the context of the updated reference intervals. Potassium 4.9 3.4 - 5.3 mmol/L 04/15/2023 7:53 AM CDT [facility] Chloride 94(L) 98 - 107 mmol/L 04/15/2023 7:53 AM CDT [facility] Carbon Dioxide (CO2) 22 22 - 29 mmol/L 04/15/2023 7:53 AM CDT [facility] Anion Gap 13 7 - 15 mmol/L 04/15/2023 7:53 AM CDT [facility] Urea Nitrogen 20.0 6.0 - 20.0 mg/dL 04/15/2023 7:53 AM CDT [facility] Creatinine 0.88 0.67 - 1.17 mg/dL 04/15/2023 7:53 AM CDT [facility] GFR Estimate >90 >60 mL/min/1. 73m2 04/15/2023 7:53 AM CDT [facility] Calcium 9.9 8.6 - 10.0 mg/dL 04/15/2023 7:53 AM CDT [facility] Glucose 706(HH) 70 - 99 mg/dL 04/15/2023 7:53 AM CDT [facility] Blood BLOOD SPECIMEN / Unknown Venipuncture / Unknown 04/15/2023 7:07 AM CDT 04/15/2023 7:14 AM CDT us Juan Sena MD LAB - BLOOD ORDERABLES Fi nal Result [facility] [address] Lab (1st floor, no room number) [place] [address], [facility] [phone] from Last 3 Months or Most Recently Relevant to Health Maintenance Insurance [facility] Care Teams Carder Blankets Relationship Specialty Start Date End Date Brijesh Rossi PCP - General Family Practice 07/16/19
--- NOTE | 2024-08-14 16:24 | ED.GENADULT ---
HPI - General Adult General Time Seen by Provider: 16:24 Date Seen: 08/14/24 Chief complaint: Diabetic Related Problem Stated complaint: Throat pain, High Gluclose, nasal balloon Time Seen by Provider: 08/14/24 15:56 Source: patient and RN notes reviewed Mode of arrival: ambulatory Limitations: no limitations History of Present Illness HPI narrative: This 54-year-old male is coming in with concern of elevated sugars. He is diabetic, is on Mounjaro but has been off of it for few weeks. He has no other diabetic medicine at home. He started noting dry mouth, could not clenches thirst. He has been thirsty and urinating a lot. He did panic at home and took a lorazepam earlier. His blood glucose was 500 at home at 1:00 p.m. today. He has had an underlying cough and cold illness, was in the ER night for nose bleed. His nose is packed, he has a follow-up with ENT on this coming Friday. He is on amoxicillin antibiotic prophylaxis with the packing in place. He notes the symptoms of the dry mouth, not feeling well, thirst all coincide with prior history of elevated sugars. He did get up to 700 at 1 point at the time of diagnosis of his diabetes, ended up in the ER overnight where he got IV fluids and insulin. He is not on insulin long-term, has just been taking the Mounjaro. He has not noted fevers. Related Data Home Medications ?Medication ?Instructions ?Recorded ?Confirmed amlodipine 10 mg tablet 10 mg PO DAILY 10/23/23 11/29/23 aspirin 81 mg tablet,delayed 81 mg PO DAILY 10/23/23 11/29/23 release (Enteric Coated Aspirin) cholecalciferol (vitamin D3) 50 50 mcg PO DAILY 10/23/23 11/29/23 mcg (2,000 unit) capsule fluoxetine 10 mg capsule (Prozac) 30 mg PO DAILY 10/23/23 11/29/23 gabapentin 300 mg capsule mg PO 10/23/23 11/29/23 lorazepam 1 mg tablet (Ativan) 0.5 - 1 mg PO DAILY PRN 10/23/23 11/29/23 losartan 50 mg tablet 50 mg PO DAILY 10/23/23 11/29/23 ondansetron HCl 4 mg tablet 4 mg PO Q8H PRN 10/23/23 11/29/23 pramipexole 0.125 mg tablet 0.375 mg PO QHS 10/23/23 11/29/23 pravastatin 40 mg tablet 40 mg PO QPM 10/23/23 11/29/23 topiramate 100 mg tablet 100 mg PO BID 10/23/23 11/29/23 tirzepatide 12.5 mg/0.5 mL 12.5 mg subcut QWEEK 10/27/23 11/29/23 subcutaneous pen injector (Meagan) Previous Rx's ?Medication ?Instructions ?Recorded ondansetron HCl 8 mg tablet 8 mg PO Q8H PRN nausea and 11/29/23 vomiting #30 tabs insulin glargine 100 unit/mL (3 10 unit (0.1 mL) subcut QPM #3 mL 08/14/24 mL) subcutaneous pen (Lantus Solostar U-100 Insulin) Allergies Allergy/AdvReac Type Severity Reaction Status Date / Time doxycycline AdvReac Verified 08/14/24 15:44 lisinopril AdvReac Verified 08/14/24 15:44 zonisamide AdvReac Verified 08/14/24 15:44 Review of Systems Status of ROS: Reports: 6 or more systems reviewed and unremarkable except as noted in History and below [facility] Medical History Cellulitis and abscess of left lower extremity ?L03.116 - Cellulitis of left lower limb (ICD-10) ?L02.416 - Cutaneous abscess of left lower limb (ICD-10) RLS (restless legs syndrome) ?G25.81 - Restless legs syndrome (ICD-10) HTN (hypertension) ?I10 - Essential (primary) hypertension (ICD-10) Neuropathy ?G62.9 - Polyneuropathy, unspecified (ICD-10) Diabetes ?E11.9 - Type 2 diabetes mellitus without complications (ICD-10) Social History Smoking Status: Former smoker Do you use any of these nicotine containing products: None How often do you have a drink containing alcohol: never AUDIT-C Alcohol total score: 0 Non-prescribed substance use: denies use Exam Const: Vital Signs, click to edit/add: Vital Signs - 24 hr 08/14/24 15:44 08/14/24 16:09 08/14/24 16:15 Temperature 99.7 F H Pulse Rate 120 H 120 H Pulse Rate [Pulse Oximeter] 125 H Respiratory Rate 20 Blood Pressure Blood Pressure [Ri ght Upper Arm] 165/98 H Pulse Oximetry 92 90 90 Oxygen Delivery Me thod Room Air 08/14/24 16:30 08/14/24 16:35 08/14/24 16:39 Temperature Pulse Rate 121 H 122 H Pulse Rate [Pulse Oximeter] Respiratory Rate 22 Blood Pressure 167/97 H Blood Pressure [Ri ght Upper Arm] Pulse Oximetry 90 89 92 Oxygen Delivery Me thod 08/14/24 16:45 Temperature Pulse Rate 120 H Pulse Rate [Pulse Oximeter] Respiratory Rate Blood Pressure Blood Pressure [Ri ght Upper Arm] Pulse Oximetry 91 Oxygen Delivery Me thod This 54-year-old male is alert, interactive, no apparent distress. He is able to speak in complete sentences, speech is normal. Pupils equal round reactive, sclerae clear, extraocular muscles intact. He has a right nasal packing in place, no bleeding noted. Oropharynx dry, no exudates or erythema, lips are dry and cracked. Neck thick, supple, nontender. Lungs are clear, good air entry, no wheezing crackles. CV fast but regular, no murmur, normal S1-S2. Abdomen is soft, nontender, nondistended, no organomegaly noted, no rebound or guarding. Patient was ambulatory into the ED of his own accord. His Accu-Chek on arrival was 425. Documenting provider has reviewed patient's vital signs: yes Course Course ED Course: This is a diabetic with excessive thirst, tachycardic in elevated sugars. Will initiate a L of IV fluids, may need insulin but will check electrolytes 1st, see where his glucose is coming back at as well as electrolytes. Need to consider other infectious etiology; given his recent upper respiratory infections, would recommend that we do the triple viral swab, look at a chest x-ray. He will get a full complement of labs. Will have him on cardiac monitoring and pulse oximetry. Obviously an IV for IV fluids will be established. Reevaluation(s) Time of Reevaluation #1: 16:57 Reevaluation #1: Patient's lactate has come back elevated at 3. Will be ordering a 2 L of normal saline for him. Time of Reevaluation #2: 18:56 Reevaluation #2: Have reviewed with patient that his testing is positive for RSV, his chest x-ray is not showing any acute pathology. With his sugars in the 400s, will do a repeat Accu-Chek when he is nearing the end of his 2 L of fluids. Will plan on giving him some Lantus insulin at that point in sending him home with a prescription for this until he can get back on his Mounjaro. Time of Reevaluation #3: 19:45 Reevaluation #3: Point of care glucose 344. Will order 10 units Lantus for patient and plan to discharge to home at this time. Vital Signs Vital signs: Initial Vital Signs Temperature 99.7 F H 08/14/24 15:44 Temperature Source Oral 08/14/24 15:44 Pulse Rate 125 H 08/14/24 15:44 Respiratory Rate 20 08/14/24 15:44 Blood Pressure 165/98 H 08/14/24 15:44 Blood Pressure Mean 120 H 08/14/24 15:44 Blood Pressure Position Sitting 08/14/24 15:44 Pulse Oximetry 92 08/14/24 15:44 Oxygen Delivery Method Room Air 08/14/24 15:44 Vital Signs Temperature 99.7 F H 08/14/24 15:44 Pulse Rate 125 H 08/14/24 15:44 Respiratory Rate 20 08/14/24 15:44 Blood Pressure 165/98 H 08/14/24 15:44 Pulse Oximetry 92 08/14/24 15:44 Oxygen Delivery Method Room Air 08/14/24 15:44 Temperature 99.7 F H 08/14/24 15:44 Pulse Rate 120 H 08/14/24 16:45 Respiratory Rate 22 08/14/24 16:35 Blood Pressure 167/97 H 08/14/24 16:35 Pulse Oximetry 91 08/14/24 16:45 Oxygen Delivery Method Room Air 08/14/24 15:44 Medications Administered Medications: Discontinued Medications Generic Name Dose Route Start Last Admin Trade Name Freq PRN Reason Stop Dose Admin Sodium Chloride 1,000 mls @ 1,000 mls/hr 08/14/24 16:30 08/14/24 18:33 0.9 % Sodium Chloride 1000 Ml IV 08/14/24 17:29 Infused .Q1H REMA Infusion Sodium Chloride 1,000 mls @ 1,000 mls/hr 08/14/24 16:57 08/14/24 18:32 0.9 % Sodium Chloride 1000 Ml IV 08/14/24 17:56 1,000 mls/hr .Q1H REMA Administration Medical Decision Making Lab Data Lab results reviewed: Yes I reviewed the patient's lab results Labs: Lab Results 08/14/24 08/14/24 08/14/24 Range/Units 16:30 16:45 17:04 WBC 9.93 (4.50-11.00) K/uL RBC 5.70 (4.30-5.90) m/uL Hgb 17.6 H (13.5-17.5) gm/dL Hct 50.1 (37.0-53.0) % MCV 88 (80-100) fL MCH 31 (26-34) pg MCHC 35 (32-36) gm/dL RDW Coeff of Vonnie 12.6 (11.5-15.5) % Plt Count 158 (140-440) K/uL Neut % (Auto) 89.5 H (42.0-72.0) % Lymph % (Auto) 5.4 L (20-44) % [place] % (Auto) 4.0 (0.0-11.0) % Eos % (Auto) 0.8 (0.0-7.0) % Baso % (Auto) 0.2 (0.0-3.0) % Neut # (Auto) 8.90 H (1.7-7.0) K/uL Lymph # (Auto) 0.50 L (0.90-2.90) K/uL [place] # (Auto) 0.40 (0.00-0.90) K/UL Eos # (Auto) 0.08 (0.00-0.50) K/uL Baso # (Auto) 0.02 (0.00-0.30) K/uL Abs Immat Gran (auto) 0.01 (0.00-0.30) K/uL Imm/Tot Granulo (auto) 0.1 % VBG pH 7.422 (7.32-7.43) VBG pCO2 37 L (40-50) mmHG VBG pO2 43.1 (25-47) mmHG VBG HCO3 24 (21-28) mmol/L Sodium 133 L (135-149) mmol/L Potassium 4.8 (3.6-5.1) mmol/L Chloride 97 (96-114) mmol/L Carbon Dioxide 24 (20-32) mmol/L Anion Gap 12 (7-15) mEq/L BUN 19 (7-30) mg/dL Creatinine 0.9 (0.5-1.5) mg/dL Estimated Creat Clear 112.15 Estimated GFR 101 ml/min Glucose 405 H* (60-115) mg/dL Lactate 3.0 H (0.5-1.9) mmol/L Calcium 9.4 (8.4-10.6) mg/dL Magnesium 1.9 (1.5-2.6) mg/dL Total Bilirubin 1.4 (0.1-1.5) mg/dL AST 37 H (12-35) U/L ALT 49 (4-50) U/L Alkaline Phosphatase 89 (40-150) U/L Troponin I 0.01 (0.01-0.04) ng/mL Total Protein 7.7 (6.0-8.3) g/dL Albumin 4.5 (3.3-5.0) g/dL Urine Color (Yellow) Urine Appearance (Clear) Urine pH (5.0-8.5) Ur Specific [place] (1.000-1.030) Urine Protein (Negative) Urine Glucose (UA) (Negative) Urine Ketones (Negative) Urine Blood (Negative) Urine Nitrite (Negative) Urine Bilirubin (Negative) Urine Urobilinogen (0.2-1.0) Ur Leukocyte Esterase (Negative) Urine RBC (0-2) Urine WBC (0-5) Ur Squamous Epith Cells (None-Few) Urine Bacteria (None) SARS-CoV-2 (PCR) Negative SARS-CoV-2 (Negative) Influenza Type A (PCR) Negative PCR FLU A (Negative) Influenza Type B (PCR) Negative PCR FLU B (Negative) RSV (PCR) POSITIVE PCR RSV A (Negative) Lab Acknowledgement Test Added POC Glucose (60-115) mg/dl 08/14/24 08/14/24 Range/Units 19:35 Unknown WBC (4.50-11.00) K/uL RBC (4.30-5.90) m/uL Hgb (13.5-17.5) gm/dL Hct (37.0-53.0) % MCV (80-100) fL MCH (26-34) pg MCHC (32-36) gm/dL RDW Coeff of Vonnie (11.5-15.5) % Plt Count (140-440) K/uL Neut % (Auto) (42.0-72.0) % Lymph % (Auto) (20-44) % [place] % (Auto) (0.0-11.0) % Eos % (Auto) (0.0-7.0) % Baso % (Auto) (0.0-3.0) % Neut # (Auto) (1.7-7.0) K/uL Lymph # (Auto) (0.90-2.90) K/uL [place] # (Auto) (0.00-0.90) K/UL Eos # (Auto) (0.00-0.50) K/uL Baso # (Auto) (0.00-0.30) K/uL Abs Immat Gran (auto) (0.00-0.30) K/uL Imm/Tot Granulo (auto) % VBG pH (7.32-7.43) VBG pCO2 (40-50) mmHG VBG pO2 (25-47) mmHG VBG HCO3 (21-28) mmol/L Sodium (135-149) mmol/L Potassium (3.6-5.1) mmol/L Chloride (96-114) mmol/L Carbon Dioxide (20-32) mmol/L Anion Gap (7-15) mEq/L BUN (7-30) mg/dL Creatinine (0.5-1.5) mg/dL Estimated Creat Clear Estimated GFR ml/min Glucose (60-115) mg/dL Lactate (0.5-1.9) mmol/L Calcium (8.4-10.6) mg/dL Magnesium (1.5-2.6) mg/dL Total Bilirubin (0.1-1.5) mg/dL AST (12-35) U/L ALT (4-50) U/L Alkaline Phosphatase (40-150) U/L Troponin I (0.01-0.04) ng/mL Total Protein (6.0-8.3) g/dL Albumin (3.3-5.0) g/dL Urine Color Yellow (Yellow) Urine Appearance Clear (Clear) Urine pH 6.0 (5.0-8.5) Ur Specific [place] 1.010 (1.000-1.030) Urine Protein Negative (Negative) Urine Glucose (UA) 3+ A (Negative) Urine Ketones 1+ A (Negative) Urine Blood Trace-intact A (Negative) Urine Nitrite Negative (Negative) Urine Bilirubin Negative (Negative) Urine Urobilinogen 0.2 (0.2-1.0) Ur Leukocyte Esterase Negative (Negative) Urine RBC 0-2 (0-2) Urine WBC 0-2 (0-5) Ur Squamous Epith Cells None (None-Few) Urine Bacteria None (None) SARS-CoV-2 (PCR) (Negative) Influenza Type A (PCR) (Negative) Influenza Type B (PCR) (Negative) RSV (PCR) (Negative) Lab Acknowledgement POC Glucose 344 H (60-115) mg/dl Imaging Data Chest x-ray: Attestation: I have reviewed the pertinent imaging results. Radiologist's impression: Patient: LOUIS STOUT Facility:?[facility] Patient ID:?[id number] Site Patient ID:?[id number]. Site :?[id number] Study:?XRay-Chest PORTABLE-08/14/2024 5:17:58 PM Ordering Physician:?Curly Lozoya Final Report: INDICATION: Fever, recent URI TECHNIQUE: Chest 1 view. COMPARISON: None. FINDINGS: The heart is at the upper limits of normal in size. The pulmonary vasculature is within normal limits. The lungs are clear. Bones are unremarkable. IMPRESSION: No acute process. Dictated by Lisbeth Man MD @ 08/14/2024 5:31:40 PM Dictated by: Lisbeth Man MD @ 08/14/2024 17:31:48 (Electronic Signature) ECG Data Attestation: I personally reviewed and interpreted this ECG as follows: (Sinus tachycardia, 122 beats per minute. Q-waves inferiorly without acute ST segment changes.) Prior ECG tracings: not available for review Discharge Plan Discharge Clinical Impression: Hyperglycemia due to diabetes mellitus Respiratory syncytial virus (RSV) infection Qualifiers: RSV infection type: unspecified Qualified Code(s): B33.8 - Other specified viral diseases Patient Disposition: Home, Self-Care Instructions: Diabetic Hyperglycemia (ED), RSV (Respiratory Syncytial Virus) Infection (ED) Additional Instructions: Continue with Lantus, next dose due tomorrow. Need to follow-up with your primary care provider within the next week. Will have to decide what your going to do about your diabetic medicines. If you go back on Mounjaro, Lantus may need to be stopped. Continue to monitor your sugars, continue drinking fluids to thirst at this time. Anticipate illness from RSV to last for 1-2 weeks and then start showing improvement. If concerns for any complications of RSV such as worsening cough, worsening fever pattern from this, do recommend re-evaluation. Activity Level: No Restrictions Discharge Diet: Diabetic Prescriptions: New insulin glargine [Lantus Solostar U-100 Insulin] 100 unit/mL (3 mL) insulin pen 10 unit subcut QPM Qty: 3 2RF No Action ondansetron HCl 8 mg tablet 8 mg PO Q8H PRN (Reason: nausea and vomiting) Qty: 30 0RF losartan 50 mg tablet 50 mg PO DAILY pravastatin 40 mg tablet 40 mg PO QPM amlodipine 10 mg tablet 10 mg PO DAILY gabapentin 300 mg capsule PO topiramate 100 mg tablet 100 mg PO BID aspirin [Enteric Coated Aspirin] 81 mg tablet,delayed release (DR/EC) 81 mg PO DAILY cholecalciferol (vitamin D3) 50 mcg (2,000 unit) capsule 50 mcg PO DAILY fluoxetine [Prozac] 10 mg capsule 30 mg PO DAILY lorazepam [Ativan] 1 mg tablet 0.5 - 1 mg PO DAILY PRN ondansetron HCl 4 mg tablet 4 mg PO Q8H PRN pramipexole 0.125 mg tablet 0.375 mg PO QHS Mounjaro 12.5 mg/0.5 mL pen injector 12.5 mg subcut QWEEK Follow Up/Referrals: Brijesh Rossi MD [Primary Care Provider] - Stand Alone Forms: [email or web address] Info Instructions
[2024-08-14 16:40] LABS: Basophils Absolute Auto 0.02 K/uL (0.00-0.30); Basophils Percent Auto 0.2 % (0.0-3.0); Eosinophils Absolute Auto 0.08 K/uL (0.00-0.50); Eosinophils Percent Auto 0.8 % (0.0-7.0); Hematocrit 50.1 % (37.0-53.0); Hemoglobin* 17.6 gm/dL (13.5-17.5); Immature Granulocytes Abs Auto 0.01 K/uL (0.00-0.30); Immature Granulocytes Pct Auto 0.1 %; Lymphocytes Percent Auto 5.4 % (20-44); Mean Corpuscular HGB Conc 35 gm/dL (32-36); Mean Corpuscular Hemoglobin 31 pg (26-34); Mean Corpuscular Volume 88 fL (80-100); Neutrophils Percent Auto 89.5 % (42.0-72.0); Platelet Count* 158 K/uL (140-440); RDW Coefficient of Variation % 12.6 % (11.5-15.5); White Blood Count* 9.93 K/uL (4.50-11.00)
[2024-08-14] MEDS: 0.9 % SODIUM CHLORIDE 1000 ml 1,000 ML IV ×2 (16:40→18:32)
[2024-08-14 16:44] LABS: HCO3 VBG 24 mmol/L (21-28); PCO2 VBG 37 mmHG (40-50); PO2 VBG 43.1 mmHG (25-47); pH VBG 7.422 (7.32-7.43)
[2024-08-14 16:53] LABS: Albumin* 4.5 g/dL (3.3-5.0); Chloride* 97 mmol/L (96-114); Potassium* 4.8 mmol/L (3.6-5.1); Slide Review Reflex No; Sodium* 133 mmol/L (135-149)
[2024-08-14 16:56] LABS: Alanine Aminotransferase* 49 U/L (4-50); Alkaline Phosphatase* 89 U/L (40-150); Anion Gap 12 mEq/L (7-15); Aspartate Amino Transferase* 37 U/L (12-35); Bilirubin Total* 1.4 mg/dL (0.1-1.5); Blood Urea Nitrogen* 19 mg/dL (7-30); Calcium* 9.4 mg/dL (8.4-10.6); Carbon Dioxide* 24 mmol/L (20-32); Creatinine* 0.9 mg/dL (0.5-1.5); Est. Creatinine Clearance* 112.15; Estimated Glomerular Filt Rate 101 ml/min; Total Protein* 7.7 g/dL (6.0-8.3)
[2024-08-14 16:57] LABS: Magnesium* 1.9 mg/dL (1.5-2.6)
--- NOTE | 2024-08-14 17:00 | CRLHL7_ITS ---
For Patients: As a result of the Cures Act, medical imaging exams and procedure reports are released immediately into your electronic medical record. You may view this report before your referring provider. If you have questions, please contact your health care provider. INDICATION: Fever, recent URI TECHNIQUE: Chest 1 view. COMPARISON: None. FINDINGS: The heart is at the upper limits of normal in size. The pulmonary vasculature is within normal limits. The lungs are clear. Bones are unremarkable. IMPRESSION: No acute process. Dictated by Lisbeth Man MD @ 08/14/2024 5:31:40 PM Dictated by: Lisbeth Man MD @ 08/14/2024 17:31:48 (Electronically Signed)
[2024-08-14 17:09] LABS: Glucose* 405 mg/dL (60-115)
[2024-08-14 17:18] LABS: Appearance Urine Clear (Clear); Bilirubin Urine Negative (Negative); Blood Urine Trace-intact (Negative); Color Urine Yellow (Yellow); Glucose Urine 3+ (Negative); Ketones Urine 1+ (Negative); Leukocyte Esterase Urine Negative (Negative); Nitrite Urine Negative (Negative); Protein Urine Negative (Negative); Urobilinogen Urine 0.2 (0.2-1.0)
--- OUTSIDE RECORDS SUMMARY | 2024-08-14 17:34 | XMS_ITS | Continuity of Care Document ---
Author Organization [facility] Address [address] [address] [place] [address] Phone Care Team Providers Care Reproducer Name Role Phone Devon Lerner MD Unavailable [...] Diagnoses Date Provider Providers Copied on Encounter [facility], [address] [address], [place], [id number], [place] tel:[phone] [facility] DiarrheaDiarrhea, unspecified 3-201 6 Eduarda Osorio. [address] [facility], [address], [place], [id number] , [place]. [phone] Referring Provider: Brijesh Rossi MD, [address] [place], [address]. tel:[phone] [facility], [address] [address], [place], [place], [id number], [place] tel:[phone] [facility] Procedure and treatment not carried out for other reasons 6 Benedicto Escoto. [address] [facility] [address], [facility] [address], [facility] [place], [id number] , [place]. tel:[phone] Referring Provider: Brijesh Rossi MD, [address] [place], [address]. tel:[phone] [facility], [address] [address], [place], [place], [id number], [place] tel:[phone] [facility] No Information 4 Jeff Conteh. [address] [place] [address], [facility] [address], [facility] [place], [place], [id number] , [place]. [phone] Referring Provider: Brijesh Rossi MD, [address] [place], [address]. tel:[phone] [facility], [address] [address], [place], [id number], [place] tel:[phone] [facility] External Referral 4 Jeff Conteh. [address] [place] [address], [facility] [address], [facility] [place], [id number] , [place]. tel:[phone] Offic/outpt E&m [place] [facility], [address] [address], [place], [id number], [place] tel:[phone] [facility] GI Symptoms or Concerns (chief complaint) Nausea And VomitingDietary Surveil/counselHype rtension, UnspecifiedEssentia l (primary) hypertensionNausea with vomiting, unspecifiedDietary counseling and surveillance 4 Benedicto Escoto. [address] [place] [address], [facility] [address], [facility] [place], [id number] , [place]. tel:[phone] Referring Provider: Brijesh Rossi MD, [address] [place] [address], [address]. tel:[phone] Family History Family Member Type Diagnosis Age At Onset Sister Problem (finding) malignant neop lasm of breast in first degree relative Father Problem (finding) Alive and well Mother Problem (finding) Thyroid disorder Sister Problem (finding) Leukemia Payers Payer name Insurance type Covered constitution party ID Authoriza timaninder(s) [facility] [id number] Social History Type Description Quantity Date Captured [...]
--- OUTSIDE RECORDS SUMMARY | 2024-08-14 17:34 | XMS_ITS | Encounter Summary ---
Author Organization [place] Address [address] [place] [address] Care Team Providers Care Team Cdl Driver Name Role Phone RossiBrijesh Primary Care Provider [phone] Reason for Visit * Reason Comments Epistaxis Encounter Details Date Type Department Care Team (Late st Contact Info) Description 08/13/2024 1:17 AM OBSTETRICS SCRUB NURSE - 08/13/2024 3:55 AM OBSTETRICS SCRUB NURSE Emergency [facility] Emergency Dept [address] [place] [phone] Nasir Beavers MD [facility] [address] [place], [place] [phone] Epistaxis Discharge Disposition: Home or Self Care [...] on file Legal Sex Male 3:18 AM OBSTETRICS SCRUB NURSE Gender Identity Not on file Sexual Orientation Not on file documented as of this encounter Last Filed Vital Signs Vital Sign Reading Time Taken Comments Blood Pressure 163/97 08/13/2024 3:44 AM OBSTETRICS SCRUB NURSE Pulse 112 08/13/2024 3:44 AM OBSTETRICS SCRUB NURSE Temperature 37.3 C (99.2 F) 08/13/2024 1:23 AM OBSTETRICS SCRUB NURSE Respiratory Rate 25 08/13/2024 3:44 AM OBSTETRICS SCRUB NURSE Oxygen Saturation 97% 08/13/2024 3:44 AM OBSTETRICS SCRUB NURSE Inhaled Oxygen Concentration - - Weight 147.4 kg (325 lb) 08/13/2024 1:21 AM OBSTETRICS SCRUB NURSE Height 193 cm (6' 4) 08/13/2024 1:21 AM OBSTETRICS SCRUB NURSE Body Mass Index 39.56 08/13/2024 1:21 AM OBSTETRICS SCRUB NURSE documented in this encounter Discharge Instructions * Discharge Instructions* Nasir Beavers MD - 08/13/2024 2:02 AM OBSTETRICS SCRUB NURSE Discharge Instructions Epistaxis Today you were seen [...] one option. There are nasal sprays available [id number] for this purpose as well. Usinga humidifier [...] the bleeding temporarily, but that is okay. Barnes decongestant nose spray (like Afrin??) into both nostrils to constrict the blood vessels. Sit or stand while bending forward slightly at the waist. Do not lie down or tilt your head back. This may cause you to swallow blood and can lead to vomiting. Nicker And Breaker the soft part of BOTH nostrils at [...] if there is anything that worries you. ETRICS SCRUB NURSE documented in this encounter Medications at Time [...] Pt tolerated well and voided 500 ml. ETRICS SCRUB NURSE ETRICS SCRUB NURSE * Nasir Beavers MD - 08/13/2024 1:53 [...] with biopsy; Surgeon: Wero Aguilar MD; Location: [facility]; Service: TONSILLECTOMY Physical Exam Patient Vitals [...] Inferior infarct, age undetermined Rate 124 bpm. WI interval 178 ms. QRS duration 78 ms. [...] Documentation None Medical Decision Making / Diagnosis [facility] Jules Potter is a 54 year old [...] statements to me. Nasir Beavers MD 08/13/246 ETRICS SCRUB NURSE * Chanel Lee RN - 08/13/2024 1:34 [...] WDL WDL Cognitive/Neuro/Behavioral WDL Cognitive/Neuro/Behavioral WDL WDL ETRICS SCRUB NURSE * Juliana Porter RN - 08/13/2024 1:17 AM CST Bed: ED16 Expected date: Expected time: Means of arrival: Comments: A596 ETRICS SCRUB NURSE documented in this encounter Plan of Treatment Not on file documented as of this encounter Procedures Procedure Name Priority Date/Time Associated Diagnosis Comments ISTAT GASES LACTATE VENOUS POCT STAT 08/13/2024 1:53 AM OBSTETRICS SCRUB NURSE EXTRA HEPARINIZED SYRINGE STAT 08/13/2024 1:51 AM OBSTETRICS SCRUB NURSE EXTRA TUBE STAT 08/13/2024 1:51 AM OBSTETRICS SCRUB NURSE EKG 12-LEAD, TRACING ONLY STAT 08/13/2024 1:38 AM OBSTETRICS SCRUB NURSE EXTRA TUBE STAT 08/13/2024 1:28 AM OBSTETRICS SCRUB NURSE EXTRA BLOOD BANK PURPLE TOP TUBE STAT 08/13/2024 1:28 AM OBSTETRICS SCRUB NURSE EXTRA BLOOD BANK PURPLE TOP TUBE STAT 08/13/2024 1:28 AM OBSTETRICS SCRUB NURSE EXTRA PURPLE TOP TUBE STAT 08/13/2024 1:28 AM OBSTETRICS SCRUB NURSE EXTRA GREEN TOP (LITHIUM HEPARIN) TUBE STAT 08/13/2024 1:28 AM OBSTETRICS SCRUB NURSE CBC WITH PLATELETS AND DIFFERENTIAL STAT 08/13/2024 1:28 AM OBSTETRICS SCRUB NURSE CBC WITH PLATELETS & DIFFERENTIAL STAT 08/13/2024 1:28 AM OBSTETRICS SCRUB NURSE documented in this encounter Results * (ABNORMAL) iStat Gases (lactate) venous, POCT (08/13/2024 1:53 AM OBSTETRICS SCRUB NURSE) Lactic Acid POCT 1.8 <=2.0 mmol/L 08/13/2024 1:57 AM OBSTETRICS SCRUB NURSE [facility] Bicarbonate Venous POCT 28 21 - 28 mmol/L 08/13/2024 1:57 AM OBSTETRICS SCRUB NURSE [facility] O2 Sat, Venous POCT 30(L) 70 - 75 % 08/13/2024 1:57 AM OBSTETRICS SCRUB NURSE [facility] pCO2 Venous POCT 51(H) 40 - 50 mm Hg 08/13/2024 1:57 AM OBSTETRICS SCRUB NURSE [facility] pH Venous POCT 7.35 7.32 - 7.43 08/13/2024 1:57 AM OBSTETRICS SCRUB NURSE [facility] pO2 Venous POCT 21(L) 25 - 47 mm Hg 08/13/2024 1:57 AM OBSTETRICS SCRUB NURSE [facility] Blood, venous BLOOD SPECIMEN / Unknown 08/13/2024 1:53 AM OBSTETRICS SCRUB NURSE 08/13/2024 1:57 AM OBSTETRICS SCRUB NURSE us Nasir Beavers MD LAB - BEAKER POCT Final Result [facility] P[facility] [address] floor, no room number) [place] [address], [facility] * Extra Heparinized Syringe (08/13/2024 1:51 AM OBSTETRICS SCRUB NURSE) Hold Specimen JIC 08/13/2024 3:03 AM OBSTETRICS SCRUB NURSE [facility] Blood, venous BLOOD SPECIMEN / Unknown Venipuncture / Unknown 08/13/2024 1:51 AM OBSTETRICS SCRUB NURSE 08/13/2024 2:02 AM OBSTETRICS SCRUB NURSE Nasir Beavers MD LAB - BLOOD ORDERABLES Final Res ult LABORATORY [facility] [address] Lab (1st floor, no room number) [place] [address] * EKG 12-lead, tracing only (08/13/2024 1:38 AM OBSTETRICS SCRUB NURSE) Systolic Blood Pressure mmHg RADIOLOGY RESULTS Diastolic Blood Pressure mmHg RADIOLOGY RESULTS Ventricular Rate 124 BPM RAD IOLOGY RESULTS Atrial Rate 124 BPM RADIOLOG Y RESULTS WI Interval 178 ms RADIOLOG Y RESULTS QRS Duration 78 ms RADIOLO GY RESULTS QT 298 ms RADIOLOGY RESULTS QTc 428 ms RADIOLOGY RESULTS P [place] 29 degrees RADIOLOGY RESULTS R AXIS -36 degrees RADIOLOGY RESULTS T [place] 25 degrees RADIOLOGY RESULTS Interpretation ECG Sinus [...] Confirmed by - EMERGENCY ROOM, PHYSICIAN ([id number]), assignment editor RICA MCKEON ([id number]) on 08/13/2024 7:55:52 AM RADIOLOGY RESULTS 08/13/2024 1:38 AM OBSTETRICS SCRUB NURSE 08/13/2024 7:55 AM OBSTETRICS SCRUB NURSE Nasir Beavers MD ECG ORDERABLES Edited Result - Final RADIOLOGY RESULTS * (ABNORMAL) CBC with platelets and differential (08/13/2024 1:28 AM OBSTETRICS SCRUB NURSE) WBC Count 8.1 4.0 - 11.0 10e3/uL 08/13/2024 2:12 AM OBSTETRICS SCRUB NURSE LABORATORY RBC Count 5.83 4.40 - 5.90 10e6/uL 08/13/2024 2:12 AM OBSTETRICS SCRUB NURSE [facility] Hemoglobin 18.2(H) 13.3 - 17.7 g/dL 08/13/2024 2:12 AM OBSTETRICS SCRUB NURSE [facility] Hematocrit 50.6 40.0 - 53.0 % 08/13/2024 2:12 AM OBSTETRICS SCRUB NURSE [facility] MCV 87 78 - 100 fL 08/13/2024 2:12 AM OBSTETRICS SCRUB NURSE [facility] MCH 31.2 26.5 - 33.0 pg 08/13/2024 2:12 AM OBSTETRICS SCRUB NURSE [facility] MCHC 36.0 31.5 - 36.5 g/dL 08/13/2024 2:12 AM OBSTETRICS SCRUB NURSE [facility] RDW 12.5 10.0 - 15.0 % 08/13/2024 2:12 AM OBSTETRICS SCRUB NURSE [facility] Platelet Count 165 150 - 450 10e3/uL 08/13/2024 2:12 AM OBSTETRICS SCRUB NURSE [facility] % Neutrophils 58 % 08/13/2024 2:12 AM OBSTETRICS SCRUB NURSE [facility] % Lymphocytes 28 % 08/13/2024 2:12 AM OBSTETRICS SCRUB NURSE [facility] % Monocytes 10 % 08/13/2024 2:12 AM OBSTETRICS SCRUB NURSE [facility] % Eosinophils 4 % 08/13/2024 2:12 AM OBSTETRICS SCRUB NURSE LABORATORY % Basophils 1 % 08/13/2024 2:12 AM OBSTETRICS SCRUB NURSE [facility] % Immature Granulocytes 0 % 08/13/2024 2:12 AM OBSTETRICS SCRUB NURSE LABORATORY NRBCs per 100 WBC 0 <1 /100 025 2:12 AM OBSTETRICS SCRUB NURSE LABORATORY Absolute Neutrophils 4.7 1.6 - 8.3 10e3/uL 08/13/2024 2:12 AM OBSTETRICS SCRUB NURSE [facility] Absolute Lymphocytes 2.3 0.8 - 5.3 10e3/uL 08/13/2024 2:12 AM OBSTETRICS SCRUB NURSE LABORATORY Absolute Monocytes 0.8 0.0 - 1.3 10e3/uL 08/13/2024 2:12 AM OBSTETRICS SCRUB NURSE [facility] Absolute Eosinophils 0.3 0.0 - 0.7 10e3/uL 08/13/2024 2:12 AM OBSTETRICS SCRUB NURSE LABORATORY Absolute Basophils 0.1 0.0 - 0.2 10e3/uL 08/13/2024 2:12 AM OBSTETRICS SCRUB NURSE [facility] Absolute Immature Granulocytes 0.0 <=0.4 10e3/uL 08/13/2024 2:12 AM OBSTETRICS SCRUB NURSE LABORATORY Absolute NRBCs 0.0 10e3/uL 08/13/2024 2:12 AM OBSTETRICS SCRUB NURSE [facility] Blood VENOUS LINE / Unknown Venipuncture / Unknown 08/13/2024 1:28 AM OBSTETRICS SCRUB NURSE 08/13/2024 1:39 AM OBSTETRICS SCRUB NURSE us Nasir Beavers MD LAB - BLOOD ORDERABLES Final Res ult [facility] [address] Lab (1st floor, no room number) [place] [address], [place] * Extra Blood Bank Purple Top Tube (08/13/2024 1:28 AM OBSTETRICS SCRUB NURSE) Hold Specimen [facility] 08/13/2024 2:46 AM OBSTETRICS SCRUB NURSE [facility] Blood VENOUS LINE / Unknown Venipuncture / Unknown 08/13/2024 1:28 AM OBSTETRICS SCRUB NURSE 08/13/2024 1:39 AM OBSTETRICS SCRUB NURSE us Nasir Beavers MD LAB - BLOOD ORDERABLES Final Res ult Performing Organization Address City/[facility]/ZIP Co de Phone Number [facility] [address] Lab (1st floor, no room number) [place] [address], [place] * Extra Blood Bank Purple Top Tube (08/13/2024 1:28 AM OBSTETRICS SCRUB NURSE) Hold Specimen [facility] 08/13/2024 2:46 AM OBSTETRICS SCRUB NURSE [facility] Blood VENOUS LINE / Unknown Venipuncture / Unknown 08/13/2024 1:28 AM OBSTETRICS SCRUB NURSE 08/13/2024 1:39 AM OBSTETRICS SCRUB NURSE us Nasir Beavers MD LAB - BLOOD ORDERABLES Final Res ult [facility] [address] Lab (1st floor, no room number) [place] [address], [place] * Extra Purple Top Tube (08/13/2024 1:28 AM OBSTETRICS SCRUB NURSE) Hold Specimen [facility] 08/13/2024 2:46 AM OBSTETRICS SCRUB NURSE [facility] LAB[facility]AT[facility] Blood VENOUS LINE / Unknown Venipuncture / Unknown 08/13/2024 1:28 AM OBSTETRICS SCRUB NURSE 08/13/2024 1:39 AM OBSTETRICS SCRUB NURSE Nasir Beavers MD LAB - BLOOD ORDERABLES Final Res ult [facility] [address] [employer] Lab (1st floor, no room number) [place] [address] * Extra Green Top ([place] Heparin) Tube (08/13/2024 1:28 AM OBSTETRICS SCRUB NURSE) Hold Specimen [facility] 08/13/2024 2:46 AM OBSTETRICS SCRUB NURSE [facility] Blood VENOUS LINE / Unknown Venipuncture / Unknown 08/13/2024 1:28 AM OBSTETRICS SCRUB NURSE 08/13/2024 1:39 AM OBSTETRICS SCRUB NURSE Nasir Beavers MD LAB - BLOOD ORDERABLES Final Res ult [facility] [address] Lab (1st floor, no room number) [place] [id number] [place] [address] documented in this encounter Visit Diagnoses Diagnosis [...] after each dose. $Given 08/13/2024 2:11 AM OBSTETRICS SCRUB NURSE 0.5 mg documented in this encounter Active and Recently Administered Medications Times are shown in OBSTETRICS SCRUB NURSE. Scheduled Medication Order 08/11/2024 08/12/2024 08/13/2024 LORazepam [...] RN) documented in this encounter Care Teams Team Cdl Driver Relationship Specialty Start Date End Date FloBrijesh PCP - General Family Practice 07/16/19 documented as of this encounter
--- OUTSIDE RECORDS SUMMARY | 2024-08-14 17:34 | XMS_ITS | Clinical Summary ---
Author Organization [facility] Address [address], [place] [address] Care Team Providers Care Psychotherapist Counselor Name Role Phone Brijesh Rossi MD Primary Care Provider [phone] Source Comments You are receiving this document as you are listed as the primary care provider,follow-up provider, or the patient has been referred to you for consultation.This is in compliance with the Medicare and[facility] Hospitalca[facility] EHR Incentive Program,which states Providers who transition their patient to another setting of careor provider of care or refers their patient to another provider of care shouldprovide summary care record for each transition of care or referral. [employer] Allergies Active Allergy Reactions Criticality Noted Date [...] age to complete this topic Care Teams Psychotherapist Counselor Relationship Specialty Start Date End Date Brijesh Rossi MD [address] [place] [address] PCP - General Family Practice 02/02/23
--- OUTSIDE RECORDS SUMMARY | 2024-08-14 17:34 | XMS_ITS | Encounter Summary ---
Author Organization [place] Address [address] [place] [address] Care Team Providers Care Control Panel Operator Name Role Phone Brijesh Rossi Primary Care Provider [phone] Encounter Details Date Type Department Care Team [...] on file Legal Sex Male 3:18 AM GAS PUMPING STATION OPERATOR Gender Identity Not on file Sexual Orientation Not on file documented as of this encounter Plan of Treatment Not on file documented as of this encounter Visit Diagnoses Not on filedocumented in this encounter Care Teams Control Panel Operator Relationship Specialty Start Date End Date Brijesh Rossi PCP - General Family Practice 07/16/19 documented as of this encounter
--- OUTSIDE RECORDS SUMMARY | 2024-08-14 17:34 | XMS_ITS | Clinical Summary ---
Author Organization [facility] Address [place], [place] [address] Care Team Providers Care Wool Fleece Sorter Name Role Phone Kevonshon Areli Samantha RN Unavailable [phone] Brijesh Rossi MD Primary Care Provider Allergies [...] be used to read blood sugars, follow box loader directions. Change each sensor every 14 days [...] Department Care Team Description 06/22/2024 2:40 PM FISH PACKER Office Visit [facility] [address] [phone] Emilie Dodson PA Mental Health Issue (Patient would like mental health referral. Patient lost on and is having trouble sleeping and eating. Patient states he has depression during the day and anxiety throughout the night. 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 Not on file Not on file Obstetrics History Last Filed Vital Signs Vital Sign Reading Time Taken Comments Blood Pressure 183/102 06/22/2024 2:47 PM FISH PACKER Pulse 104 06/22/2024 2:47 PM FISH PACKER Temperature 36.1 C (97 F) 06/22/2024 2:47 PM FISH PACKER Respiratory Rate 22 06/22/2024 2:47 PM FISH PACKER Oxygen Saturation 95% 06/22/2024 2:47 PM FISH PACKER Inhaled Oxygen Concentration - - Weight 150 kg (330 lb 11.2 oz) 10/02/2023 9:11 A M CDT Height 189.2 cm (6' 2.5) 10/02/2023 9:11 AM CDT Body Mass Index 41.89 10/02/2023 9:11 AM CDT Plan of Treatment Upcoming Encounters Date Type Department Care Team (Late st Contact Info) Description 08/17/2024 2:30 PM FISH PACKER Office Visit [facility] [address] [place], [place] [phone] Aime Perry MD [address] [place], [place] [phone] Health Maintenance Due Date Last Done Comments [...] REFLEX MEASURED LDL Routine 05/29/2018 2:15 PM FISH PACKER Well adult exam SCAN-COLONOSCOPY 10/25/2015 8:00 AM CDT from Last 3 Months or Most Recently Relevant to Health Maintenance Results * (ABNORMAL) LIPID PANEL W REFLEX MEASURED LDL (05/29/2018 2:15 PM FISH PACKER) CHOLESTEROL,TOTAL 182 100 - 199 mg/dL 05/29/2018 2:48 PM FISH PACKER [facility] TRIGLYCERIDES 415(H) <150 mg/dL 05/29/2018 2:48 PM FISH PACKER [facility] HDL CHOLESTEROL 30(L) >40 mg/dL 8 2:48 PM FISH PACKER [facility] NON-HDL CHOLESTEROL 152(H) <145 mg/dl 05/29/2018 2:48 PM FISH PACKER [facility] CHOL/HDL RATIO 6.07(H) <4.50 05/29/2018 2:48 PM FISH PACKER [facility] LDL CHOLESTEROL 8 2:48 PM FISH PACKER [facility] Comment:Invalid LDL when Tri g >400, reflexed to measured LDL PROVIDER ORDERED STATUS RANDOM 05/29/2018 2:48 PM FISH PACKER [facility] Blood BLOOD SPECIMEN / Unknown Venipuncture / Unknown 05/29/2018 2:15 PM FISH PACKER 05/29/2018 2:15 PM FISH PACKER us Brijesh Rossi MD CHEMISTRY Final R esult [address] [address] * SCAN-COLONOSCOPY (10/25/2015 8:00 AM CDT) Narrative Transcriptions Devon eLrner MD - 10/25/2015 7:04 AM CDT [facility] [address], [address], [place] [address] Patient Name: Louis Potter Gender: Male Exam Date: 10/25/2015 Visit Number: [id number] Age: 45 Years Date of : 1970 Attending MD: Devon Lerner MD Medical Record#: [id number] ----- Procedure: Colonoscopy Indications: Diarrhea Referring MD: [...] Most Recently Relevant to Health Maintenance Insurance [facility] [place] * Guarantor: LOUIS POTTER Account Type Relation to Patient Date of Phone Billing Address Workers Comp 1970 [address], [place] [address] [place] [employer] Advance [...] 8:26 AM 06/07/2014 2:16 PM Care Teams Wool Fleece Sorter Relationship Specialty Start Date End Date Brijesh Rossi MD [address] [place] [address] [place] [address] PCP - General Family Practice 04/26/24 Areli Ogden RN [address] [place] [address] Hogshead Inspector 04/17/23
--- OUTSIDE RECORDS SUMMARY | 2024-08-14 17:34 | XMS_ITS | Referral Summary ---
Author Organization [facility] Address [address] [place] [id number] Care Team Providers Care Forensic Psychologist Name Role Phone Flo Brijesh Primary Care Provider [phone] Encounters Date Type Department Care Team Description 08/13/2024 Travel 08/13/2024 1:17 AM AIRPLANE CLEANER - 08/13/2024 3:55 AM [facility] Emergency Dept [address] [place] [address] [phone] Nasir Beavers MD Epistaxis Discharge Disposition: Home [...] on file Legal Sex Male 3:18 AM AIRPLANE CLEANER Gender Identity Not on file Sexual Orientation Not on file Last Filed Vital Signs Vital Sign Reading Time Taken Comments Blood Pressure 163/97 08/13/2024 3:44 AM AIRPLANE CLEANER Pulse 112 08/13/2024 3:44 AM AIRPLANE CLEANER Temperature 37.3 C (99.2 F) 08/13/2024 1:23 AM AIRPLANE CLEANER Respiratory Rate 25 08/13/2024 3:44 AM AIRPLANE CLEANER Oxygen Saturation 97% 08/13/2024 3:44 AM AIRPLANE CLEANER Inhaled Oxygen Concentration - - Weight 147.4 kg (325 lb) 08/13/2024 1:21 AM AIRPLANE CLEANER Height 193 cm (6' 4) 08/13/2024 1:21 AM AIRPLANE CLEANER Body Mass Index 39.56 08/13/2024 1:21 AM AIRPLANE CLEANER Plan of Treatment Not on file Procedures Procedure Name Priority Date/Time Associated Diagnosis Comments ISTAT GASES LACTATE VENOUS POCT STAT 08/13/2024 1:53 AM AIRPLANE CLEANER EXTRA HEPARINIZED SYRINGE STAT 08/13/2024 1:51 AM AIRPLANE CLEANER EXTRA TUBE STAT 08/13/2024 1:51 AM AIRPLANE CLEANER EKG 12-LEAD, TRACING ONLY STAT 08/13/2024 1:38 AM AIRPLANE CLEANER CBC WITH PLATELETS & DIFFERENTIAL STAT 08/13/2024 1:28 AM AIRPLANE CLEANER CBC WITH PLATELETS AND DIFFERENTIAL STAT 08/13/2024 1:28 AM AIRPLANE CLEANER EXTRA BLOOD BANK PURPLE TOP TUBE STAT 08/13/2024 1:28 AM AIRPLANE CLEANER EXTRA BLOOD BANK PURPLE TOP TUBE STAT 08/13/2024 1:28 AM AIRPLANE CLEANER EXTRA PURPLE TOP TUBE STAT 08/13/2024 1:28 AM AIRPLANE CLEANER EXTRA GREEN TOP (LITHIUM HEPARIN) TUBE STAT 08/13/2024 1:28 AM AIRPLANE CLEANER EXTRA TUBE STAT 08/13/2024 1:28 AM AIRPLANE CLEANER BASIC METABOLIC PANEL STAT 04/15/2023 7:07 AM CDT from Last 3 Months or Most Recently Relevant to Health Maintenance Results * (ABNORMAL) iStat Gases (lactate) venous, POCT (08/13/2024 1:53 AM AIRPLANE CLEANER) Pathologist [facility] Lactic Acid POCT 1.8 <=2.0 mmol/L 08/13/2024 1:57 AM AIRPLANE CLEANER [facility] LAB[facility]AT[facility] POC Bicarbonate Venous POCT 28 21 - 28 mmol/L 08/13/2024 1:57 AM AIRPLANE CLEANER [facility] POC O2 Sat, Venous POCT 30(L) 70 - 75 % 08/13/2024 1:57 AM AIRPLANE CLEANER [facility] POC pCO2 Venous POCT 51(H) 40 - 50 mm Hg 08/13/2024 1:57 AM AIRPLANE CLEANER [facility] POC pH Venous POCT 7.35 7.32 - 7.43 08/13/2024 1:57 AM AIRPLANE CLEANER [facility] POC pO2 Venous POCT 21(L) 25 - 47 mm Hg 08/13/2024 1:57 AM AIRPLANE CLEANER [facility] POC Blood, venous BLOOD SPECIMEN / Unknown 08/13/2024 1:53 AM AIRPLANE CLEANER 08/13/2024 1:57 AM AIRPLANE CLEANER Nasir ANDREW POCT Final Result [facility] LABORATORY POC [facility] Acute Care Lab [address] Lab (1st floor, no room number) [place] [address], [facility] * Extra Heparinized Syringe (08/13/2024 1:51 AM AIRPLANE CLEANER) Hold Specimen [facility] 08/13/2024 3:03 AM AIRPLANE CLEANER LABORATORY Blood, venous BLOOD SPECIMEN / Unknown Venipuncture / Unknown 08/13/2024 1:51 AM AIRPLANE CLEANER 08/13/2024 2:02 AM AIRPLANE CLEANER Nasir Beavers MD LAB - BLOOD ORDERABLES Final Res ult LABORATORY [facility] Acute Care Lab [address] Lab (1st floor, no room number) [place] [address] * EKG 12-lead, tracing only (08/13/2024 1:38 AM AIRPLANE CLEANER) Pathologist [facility] Systolic Blood Pressure mmHg RADIOLOGY RESULTS Diastolic Blood Pressure mmHg RADIOLOGY RESULTS Ventricular Rate 124 BPM RAD IOLOGY RESULTS Atrial Rate 124 BPM RADIOLOG Y RESULTS IA Interval 178 ms RADIOLOG Y RESULTS QRS Duration 78 ms RADIOLO GY RESULTS QT 298 ms RADIOLOGY RESULTS QTc 428 ms RADIOLOGY RESULTS P [place] 29 degrees RADIOLOGY RESULTS R AXIS -36 degrees RADIOLOGY RESULTS T [place] 25 degrees RADIOLOGY RESULTS Interpretation ECG Sinus [...] Confirmed by - EMERGENCY ROOM, PHYSICIAN ([id number]), manager editorial RICA MCKEON ([id number]) on 08/13/2024 7:55:52 AM RADIOLOGY RESULTS 08/13/2024 1:38 AM AIRPLANE CLEANER 08/13/2024 7:55 AM AIRPLANE CLEANER Nasir Beavers MD ECG ORDERABLES Edited Result - Final RADIOLOGY RESULTS * Extra Blood Bank Purple Top Tube (08/13/2024 1:28 AM AIRPLANE CLEANER) Only the most recent of2 resultswithin the time period is included. Hold Specimen [facility] 08/13/2024 2:46 AM AIRPLANE CLEANER [facility] LAB[facility] Blood VENOUS LINE / Unknown Venipuncture / Unknown 08/13/2024 1:28 AM AIRPLANE CLEANER 08/13/2024 1:39 AM AIRPLANE CLEANER us Nasir Beavers MD LAB - BLOOD ORDERABLES Final Res ult [facility] [address] Lab (1st floor, no room number) [address] [place] [address] * Extra Purple Top Tube (08/13/2024 1:28 AM AIRPLANE CLEANER) Hold Specimen [facility] 08/13/2024 2:46 AM AIRPLANE CLEANER [facility] LAB[facility] Blood VENOUS LINE / Unknown Venipuncture / Unknown 08/13/2024 1:28 AM AIRPLANE CLEANER 08/13/2024 1:39 AM AIRPLANE CLEANER us Nasir Beavers MD LAB - BLOOD ORDERABLES Final Res ult [facility] [address] Lab (1st floor, no room number) [address] * Extra Green Top ([place] Heparin) Tube (08/13/2024 1:28 AM AIRPLANE CLEANER) Hold Specimen [facility] 08/13/2024 2:46 AM AIRPLANE CLEANER [facility] LAB[facility]ATORY Blood VENOUS LINE / Unknown Venipuncture / Unknown 08/13/2024 1:28 AM AIRPLANE CLEANER 08/13/2024 1:39 AM AIRPLANE CLEANER us Nasir Beavers MD LAB - BLOOD ORDERABLES Final Res ult [facility] [address] Lab (1st floor, no room number) [address] [place] [address] * (ABNORMAL) CBC with platelets and differential (08/13/2024 1:28 AM AIRPLANE CLEANER) WBC Count 8.1 4.0 - 11.0 10e3/uL 08/13/2024 2:12 AM AIRPLANE CLEANER [facility] LAB[facility] RBC Count 5.83 4.40 - 5.90 10e6/uL 08/13/2024 2:12 AM AIRPLANE CLEANER [facility] Hemoglobin 18.2(H) 13.3 - 17.7 g/dL 08/13/2024 2:12 AM AIRPLANE CLEANER [facility] Hematocrit 50.6 40.0 - 53.0 % 08/13/2024 2:12 AM AIRPLANE CLEANER [facility] LAB[facility] MCV 87 78 - 100 fL 08/13/2024 2:12 AM AIRPLANE CLEANER [facility] LAB[facility] MCH 31.2 26.5 - 33.0 pg 08/13/2024 2:12 AM AIRPLANE CLEANER LABORATORY MCHC 36.0 31.5 - 36.5 g/dL 08/13/2024 2:12 AM AIRPLANE CLEANER LABORATORY RDW 12.5 10.0 - 15.0 % 08/13/2024 2:12 AM AIRPLANE CLEANER LABORATORY Platelet Count 165 150 - 450 10e3/uL 08/13/2024 2:12 AM AIRPLANE CLEANER LABORATORY % Neutrophils 58 % 08/13/2024 2:12 AM AIRPLANE CLEANER LABORATORY % Lymphocytes 28 % 08/13/2024 2:12 AM AIRPLANE CLEANER [facility] LAB[facility] % Monocytes 10 % 08/13/2024 2:12 AM AIRPLANE CLEANER [facility] % Eosinophils 4 % 08/13/2024 2:12 AM [facility] LAB[facility]ORY % Basophils 1 % 08/13/2024 2:12 AM AIRPLANE CLEANER [facility] % Immature Granulocytes 0 % 08/13/2024 2:12 AM AIRPLANE CLEANER LABORATORY NRBCs per 100 WBC 0 <1 /100 025 2:12 AM AIRPLANE CLEANER [facility] LAB[facility] Absolute Neutrophils 4.7 1.6 - 8.3 10e3/uL 08/13/2024 2:12 AM AIRPLANE CLEANER [facility] LAB[facility] Absolute Lymphocytes 2.3 0.8 - 5.3 10e3/uL 08/13/2024 2:12 AM AIRPLANE CLEANER LABORATORY Absolute Monocytes 0.8 0.0 - 1.3 10e3/uL 08/13/2024 2:12 AM AIRPLANE CLEANER [facility] LAB[facility] Absolute Eosinophils 0.3 0.0 - 0.7 10e3/uL 08/13/2024 2:12 AM AIRPLANE CLEANER [facility] LAB[facility] Absolute Basophils 0.1 0.0 - 0.2 10e3/uL 08/13/2024 2:12 AM AIRPLANE CLEANER [facility] LAB[facility] Absolute Immature Granulocytes 0.0 <=0.4 10e3/uL 08/13/2024 2:12 AM AIRPLANE CLEANER RH LAB[facility]ATORY Absolute NRBCs 0.0 10e3/uL 08/13/2024 2:12 AM AIRPLANE CLEANER [facility] LAB[facility] Blood VENOUS LINE / Unknown Venipuncture / Unknown 08/13/2024 1:28 AM AIRPLANE CLEANER 08/13/2024 1:39 AM AIRPLANE CLEANER us Nasir Beavers MD LAB - BLOOD ORDERABLES Final Res ult RH LABORATORY [facility] Acute Care Lab [address] [facility] Lab (1st floor, no room number) [place] [address] * (ABNORMAL) Basic metabolic panel (04/15/2023 [...] BLOOD ORDERABLES Fi nal Result RH LABORATORY [facility] Acute Care Lab [address] Lab (1st floor, no room number) [place] [address], [facility] [phone] from Last 3 Months or Most Recently Relevant to Health Maintenance Insurance [facility] OUT OF STATE Care Teams Forensic Psychologist Relationship Specialty Start Date End Date Brijesh Rossi PCP - General Family Practice 07/16/19
--- OUTSIDE RECORDS SUMMARY | 2024-08-14 17:34 | XMS_ITS | Clinical Summary ---
Author Organization [facility] Address [address] [place] [address] Care Team Providers Care Soaping Machine Back Tender Name Role Phone RossiBrijesh Primary Care Provider [phone] Allergies Active Allergy Reactions Criticality Noted Date [...] Department Care Team Description 08/13/2024 1:17 AM GLOBAL CREATIVE CHAIRMAN - 08/13/2024 3:55 AM [facility] Emergency Dept [address] [place] [phone] Nasir Beavers MD Epistaxis Discharge Disposition: Home [...] on file Legal Sex Male 3:18 AM GLOBAL CREATIVE CHAIRMAN Gender Identity Not on file Sexual Orientation Not on file Last Filed Vital Signs Vital Sign Reading Time Taken Comments Blood Pressure 163/97 08/13/2024 3:44 AM GLOBAL CREATIVE CHAIRMAN Pulse 112 08/13/2024 3:44 AM GLOBAL CREATIVE CHAIRMAN Temperature 37.3 C (99.2 F) 08/13/2024 1:23 AM GLOBAL CREATIVE CHAIRMAN Respiratory Rate 25 08/13/2024 3:44 AM GLOBAL CREATIVE CHAIRMAN Oxygen Saturation 97% 08/13/2024 3:44 AM GLOBAL CREATIVE CHAIRMAN Inhaled Oxygen Concentration - - Weight 147.4 kg (325 lb) 08/13/2024 1:21 AM GLOBAL CREATIVE CHAIRMAN Height 193 cm (6' 4) 08/13/2024 1:21 AM GLOBAL CREATIVE CHAIRMAN Body Mass Index 39.56 08/13/2024 1:21 AM GLOBAL CREATIVE CHAIRMAN Plan of Treatment Health Maintenance Due Date [...] LACTATE VENOUS POCT STAT 08/13/2024 1:53 AM GLOBAL CREATIVE CHAIRMAN EXTRA HEPARINIZED SYRINGE STAT 08/13/2024 1:51 AM GLOBAL CREATIVE CHAIRMAN EXTRA TUBE STAT 08/13/2024 1:51 AM GLOBAL CREATIVE CHAIRMAN EKG 12-LEAD, TRACING ONLY STAT 08/13/2024 1:38 AM GLOBAL CREATIVE CHAIRMAN CBC WITH PLATELETS & DIFFERENTIAL STAT 08/13/2024 1:28 AM GLOBAL CREATIVE CHAIRMAN CBC WITH PLATELETS AND DIFFERENTIAL STAT 08/13/2024 1:28 AM GLOBAL CREATIVE CHAIRMAN EXTRA BLOOD BANK PURPLE TOP TUBE STAT 08/13/2024 1:28 AM GLOBAL CREATIVE CHAIRMAN EXTRA BLOOD BANK PURPLE TOP TUBE STAT 08/13/2024 1:28 AM GLOBAL CREATIVE CHAIRMAN EXTRA PURPLE TOP TUBE STAT 08/13/2024 1:28 AM GLOBAL CREATIVE CHAIRMAN EXTRA GREEN TOP (LITHIUM HEPARIN) TUBE STAT 08/13/2024 1:28 AM GLOBAL CREATIVE CHAIRMAN EXTRA TUBE STAT 08/13/2024 1:28 AM GLOBAL CREATIVE CHAIRMAN BASIC METABOLIC PANEL STAT 04/15/2023 7:07 AM CDT from Last 3 Months or Most Recently Relevant to Health Maintenance Results * (ABNORMAL) iStat Gases (lactate) venous, POCT (08/13/2024 1:53 AM GLOBAL CREATIVE CHAIRMAN) [facility] Lactic Acid POCT 1.8 <=2.0 mmol/L 08/13/2024 1:57 AM GLOBAL CREATIVE CHAIRMAN [facility] LABORATORY POC Bicarbonate Venous POCT 28 21 - 28 mmol/L 08/13/2024 1:57 AM GLOBAL CREATIVE CHAIRMAN [facility] LABORATORY POC O2 Sat, Venous POCT 30(L) 70 - 75 % 08/13/2024 1:57 AM GLOBAL CREATIVE CHAIRMAN [facility] LAB[facility] POC pCO2 Venous POCT 51(H) 40 - 50 mm Hg 08/13/2024 1:57 AM GLOBAL CREATIVE CHAIRMAN [facility] LAB[facility] POC pH Venous POCT 7.35 7.32 - 7.43 08/13/2024 1:57 AM GLOBAL CREATIVE CHAIRMAN [facility] LAB[facility]AT[facility] POC pO2 Venous POCT 21(L) 25 - 47 mm Hg 08/13/2024 1:57 AM GLOBAL CREATIVE CHAIRMAN [facility] LAB[facility]AT[facility] POC Blood, venous BLOOD SPECIMEN / Unknown 08/13/2024 1:53 AM GLOBAL CREATIVE CHAIRMAN 08/13/2024 1:57 AM GLOBAL CREATIVE CHAIRMAN Nasir PRABHAKAR - AKER POCT Final Result RH LABORATORY POC [facility] Acute Care Lab [address] Lab (1st floor, no room number) [place] [address], [facility] * Extra Heparinized Syringe (08/13/2024 1:51 AM GLOBAL CREATIVE CHAIRMAN) [facility] Hold Specimen [facility] 08/13/2024 3:03 AM GLOBAL CREATIVE CHAIRMAN [facility] LAB[facility] Blood, venous BLOOD SPECIMEN / Unknown Venipuncture / Unknown 08/13/2024 1:51 AM GLOBAL CREATIVE CHAIRMAN 08/13/2024 2:02 AM GLOBAL CREATIVE CHAIRMAN us Nasir Beavers MD LAB - BLOOD ORDERABLES Final Res ult LABORATORY [facility] Acute Care Lab [address] Lab (1st floor, no room number) [place] [address] * EKG 12-lead, tracing only (08/13/2024 1:38 AM GLOBAL CREATIVE CHAIRMAN) Systolic Blood Pressure mmHg RADIOLOGY RESULTS Diastolic Blood Pressure mmHg RADIOLOGY RESULTS Ventricular Rate 124 BPM RAD IOLOGY RESULTS Atrial Rate 124 BPM RADIOLOG Y RESULTS AL Interval 178 ms RADIOLOG Y RESULTS QRS Duration 78 ms RADIOLO GY RESULTS QT 298 ms RADIOLOGY RESULTS QTc 428 ms RADIOLOGY RESULTS P [place] 29 degrees RADIOLOGY RESULTS R AXIS -36 degrees RADIOLOGY RESULTS T [place] 25 degrees RADIOLOGY RESULTS Interpretation ECG Sinus [...] Confirmed by - EMERGENCY ROOM, PHYSICIAN ([id number]), fan mail editor RICA MCKEON ([id number]) on 08/13/2024 7:55:52 AM RADIOLOGY RESULTS 08/13/2024 1:38 AM GLOBAL CREATIVE CHAIRMAN 08/13/2024 7:55 AM GLOBAL CREATIVE CHAIRMAN Nasir Beavers MD ECG ORDERABLES Edited Result - Final RADIOLOGY RESULTS * Extra Blood Bank Purple Top Tube (08/13/2024 1:28 AM GLOBAL CREATIVE CHAIRMAN) Only the most recent of2 resultswithin the time period is included. Hold Specimen [facility] 08/13/2024 2:46 AM GLOBAL CREATIVE CHAIRMAN LABORATORY Blood VENOUS LINE / Unknown Venipuncture / Unknown 08/13/2024 1:28 AM GLOBAL CREATIVE CHAIRMAN 08/13/2024 1:39 AM GLOBAL CREATIVE CHAIRMAN Nasir Beavers MD LAB - BLOOD ORDERABLES Final Res ult Performing Organization Address City/[facility]/ZIP Co de Phone Number LABORATORY [facility] Acute Care Lab [address] Lab (1st floor, no room number) [address] * Extra Purple Top Tube (08/13/2024 1:28 AM GLOBAL CREATIVE CHAIRMAN) Hold Specimen [facility] 08/13/2024 2:46 AM GLOBAL CREATIVE CHAIRMAN RH LABORATORY Blood VENOUS LINE / Unknown Venipuncture / Unknown 08/13/2024 1:28 AM GLOBAL CREATIVE CHAIRMAN 08/13/2024 1:39 AM GLOBAL CREATIVE CHAIRMAN Nasir Beavers MD LAB - BLOOD ORDERABLES Final Res ult Performing Organization Address [facility]/ZIP Co de Phone Number [facility] Care Lab [address] Lab (1st floor, no room number) [address] * Extra Green Top ([place] Heparin) Tube (08/13/2024 1:28 AM GLOBAL CREATIVE CHAIRMAN) Hold Specimen [facility] 08/13/2024 2:46 AM GLOBAL CREATIVE CHAIRMAN RH LABORATORY Blood VENOUS LINE / Unknown Venipuncture / Unknown 08/13/2024 1:28 AM GLOBAL CREATIVE CHAIRMAN 08/13/2024 1:39 AM GLOBAL CREATIVE CHAIRMAN Nasir Beavers MD LAB - BLOOD ORDERABLES Final Res ult Performing Organization Address City/[facility]/ZIP Co de Phone Number [facility] Acute Care Lab [address] Lab (1st floor, no room number) [address] * (ABNORMAL) CBC with platelets and differential (08/13/2024 1:28 AM GLOBAL CREATIVE CHAIRMAN) WBC Count 8.1 4.0 - 11.0 10e3/uL 08/13/2024 2:12 AM GLOBAL CREATIVE CHAIRMAN [facility] LABORATORY RBC Count 5.83 4.40 - 5.90 10e6/uL 08/13/2024 2:12 AM GLOBAL CREATIVE CHAIRMAN [facility] LABORATORY Hemoglobin 18.2(H) 13.3 - 17.7 g/dL 08/13/2024 2:12 AM GLOBAL CREATIVE CHAIRMAN RH LABORATORY Hematocrit 50.6 40.0 - 53.0 % 08/13/2024 2:12 AM GLOBAL CREATIVE CHAIRMAN LABORATORY MCV 87 78 - 100 fL 08/13/2024 2:12 AM GLOBAL CREATIVE CHAIRMAN RH LABORATORY MCH 31.2 26.5 - 33.0 pg 08/13/2024 2:12 AM GLOBAL CREATIVE CHAIRMAN LABORATORY MCHC 36.0 31.5 - 36.5 g/dL 08/13/2024 2:12 AM GLOBAL CREATIVE CHAIRMAN LABORATORY RDW 12.5 10.0 - 15.0 % 08/13/2024 2:12 AM GLOBAL CREATIVE CHAIRMAN LABORATORY Platelet Count 165 150 - 450 10e3/uL 08/13/2024 2:12 AM GLOBAL CREATIVE CHAIRMAN LABORATORY % Neutrophils 58 % 08/13/2024 2:12 AM GLOBAL CREATIVE CHAIRMAN LABORATORY % Lymphocytes 28 % 08/13/2024 2:12 AM GLOBAL CREATIVE CHAIRMAN LABORATORY % Monocytes 10 % 08/13/2024 2:12 AM GLOBAL CREATIVE CHAIRMAN LABORATORY % Eosinophils 4 % 08/13/2024 2:12 AM [facility] LAB[facility] % Basophils 1 % 08/13/2024 2:12 AM GLOBAL CREATIVE CHAIRMAN LABORATORY % Immature Granulocytes 0 % 08/13/2024 2:12 AM GLOBAL CREATIVE CHAIRMAN LABORATORY NRBCs per 100 WBC 0 <1 /100 025 2:12 AM GLOBAL CREATIVE CHAIRMAN LABORATORY Absolute Neutrophils 4.7 1.6 - 8.3 10e3/uL 08/13/2024 2:12 AM [facility] LAB[facility] Absolute Lymphocytes 2.3 0.8 - 5.3 10e3/uL 08/13/2024 2:12 AM GLOBAL CREATIVE CHAIRMAN LABORATORY Absolute Monocytes 0.8 0.0 - 1.3 10e3/uL 08/13/2024 2:12 AM [facility] LAB[facility] Absolute Eosinophils 0.3 0.0 - 0.7 10e3/uL 08/13/2024 2:12 AM GLOBAL CREATIVE CHAIRMAN LABORATORY Absolute Basophils 0.1 0.0 - 0.2 10e3/uL 08/13/2024 2:12 AM [facility] LAB[facility] Absolute Immature Granulocytes 0.0 <=0.4 10e3/uL 08/13/2024 2:12 AM [facility] LAB[facility] Absolute NRBCs 0.0 10e3/uL 08/13/2024 2:12 AM [facility] LABOR[facility] Blood VENOUS LINE / Unknown Venipuncture / Unknown 08/13/2024 1:28 AM GLOBAL CREATIVE CHAIRMAN 08/13/2024 1:39 AM GLOBAL CREATIVE CHAIRMAN us Nasir Beavers MD LAB - BLOOD ORDERABLES Final Res ult RH LABORATORY [facility] Acute Care Lab [address] Lab (1st floor, no room number) [place] [address], [facility] * (ABNORMAL) Basic metabolic panel (04/15/2023 7:07 AM CDT) [facility] Sodium 129(L) 135 - 145 mmol/L 04/15/2023 [...] LAB - BLOOD ORDERABLES Fi nal Result [facility] Acute Care Lab [address] Lab (1st floor, no room number) [place] [address], [place] [phone] from Last 3 Months or Most Recently Relevant to Health Maintenance [place] [address] Care Teams Soaping Machine Back Tender Relationship Specialty Start Date End Date Brijesh Rossi PCP - General Family Practice 07/16/19
[2024-08-14 17:36] LABS: RBC Urine 0-2 (0-2); WBC Urine 0-2 (0-5)
[2024-08-14 17:39] LABS: PCR FLU A Negative PCR FLU A (Negative); PCR FLU B Negative PCR FLU B (Negative); PCR RSV POSITIVE PCR RSV (Negative); SARS PCR* Negative SARS-CoV-2 (Negative)
[2024-08-14 17:42] LABS: Troponin I* 0.01 ng/mL (0.01-0.04)
[2024-08-14 19:42] LABS: Glucose, Point-of-Care* 344 mg/dl (60-115)
[2024-08-14] MEDS: INSULIN GLARGINE,HUM.REC.ANLOG 100 UNIT/ML INSULN.PEN 10 UNIT SUBCUT (19:59)
== END 2024-08-14 20:08 | disposition home or self-care (01) ==
PROVIDERS: Emergency Provider Family Medicine; PCP Family Medicine
DX: E11.65 Type 2 diabetes mellitus with hyperglycemia (principal); R50.9 Fever, unspecified; B97.4 Respiratory syncytial virus as the cause of diseases classified elsewhere
CPT/HCPCS: 36415; 71045; 80053; 81001; 82803; 82947; 82962; 83605; 83735; 84484; 85025; 87631; 93005; 94761; 99284; J7030